=== PATIENT | female | born 1965 | race Caucasian/White ===

== ENCOUNTER 2019-11-25 17:21 | Emergency (ER) | payer BC ==
[2019-11-25 17:31] VITALS: TEMP 98.7
[2019-11-25] MEDS ORDERED: SODIUM CHLORIDE 0.9% 1,000 ML IV STA ×2 (17:39)
[2019-11-25] MEDS ORDERED: methylPREDNISolone SOD SUCCI 125 MG/2 ML VIAL IV STA (17:39)
[2019-11-25] MEDS ORDERED: IPRATROPIUM-ALBUTEROL 3 ML NEB INHALATION STA (17:39)
[2019-11-25] MEDS ORDERED: AZITHROMYCIN 500 MG in SODIUM CHLORIDE 0.9% 250 ML IVPB STA (17:39)
--- NOTE | 2019-11-25 17:39 | ED ---
SOB HPI - General Chief Complaint: Chest Pain Stated Complaint: Chest pain Time Seen by Provider: 11/25/19 17:29 Source: patient, RN notes reviewed, old records reviewed Mode of arrival: ambulatory Limitations: no limitations - History of Present Illness Initial Comments: This is a 34-year-old female presents today for evaluation of shortness of breath severe shortness breath cough and congestion some chest pain with cough history of asthma history of bronchitis history of smoking. No significant chest pain no travel history no sick contacts no history of DVT no lower extremity edema or swelling no recent fevers. Again she has have increased cou gh and congestion and pain with cough MD Complaint: shortness of breath, cough, pain with inspiration -: days(s) Radiation: back Severity: moderate Severity scale (1-10): 3 Quality: aching Consistency: constant Improves With: nothing Worsens With: nothing Known History Of: COPD, asthma Context: recent URI Associated Symptoms: chest pain, pain with inspiration, cough Treatments Prior to Arrival: none - Related Data Home Medications Medication Instructions Recorded Confirmed Albuterol Nebulized [Ventolin 2.5 mg INHALATION RT-QID PRN 11/25/19 11/25/19 Nebulized] Atorvastatin [Lipitor] 40 mg PO DAILY 11/25/19 11/25/19 Budesonide [Pulmicort] 0.5 mg INHALATION RT-BID 11/25/19 11/25/19 HYDROcodone/APAP 7.5-325MG [[place] 1 tab PO TID PRN MDD N 11/25/19 11/25/19 7.5-325] Vitamin B Complex 1 cap PO DAILY 11/25/19 11/25/19 Previous Rx's Medication Instructions Recorded Albuterol Nebulized [Ventolin 2.5 mg INHALATION Q4H PRN #25 nebu 11/25/19 Nebulized] Albuterol Sulfate [Proair Hfa] 1 - 2 puff INHALATION Q4H PRN #1 11/25/19 inhaler Azithromycin [Zithromax Z-pack] 0 mg PO DIRECTED #1 pack 11/25/19 predniSONE 50 mg PO DAILY #5 tab 11/25/19 Allergies Allergy/AdvReac Type Severity Reaction Status Date / Time influenza virus vaccine ts Allergy Unknown Verified 11/25/19 18:57 [id number] (36 mos,up) [From Fluarix] Milk Containing Products Allergy Nausea & Verified 11/25/19 18:57 [Dairy] Vomiting & Diarrhea mold Allergy Dyspnea Verified 11/25/19 18:57 tomato Allergy Nausea & Verified 11/25/19 18:57 Vomiting & Diarrhea Review of Systems ROS Statement: Those systems with pertinent positive or pertinent negative responses have been documented in the HPI. ROS Other: All systems not noted in ROS Statement are negative. Past Medical History Past Medical History: Asthma, COPD History of Any Multi-Drug Resistant Organisms: None Reported, Unobtainable Past Surgical History: Hysterectomy Past Psychological History: No Psychological Hx Reported Smoking Status: Former smoker Past Alcohol Use History: Occasional Past Drug Use History: Marijuana General Exam Limitations: no limitations General appearance: alert, in no apparent distress Head exam: Present: atraumatic, normocephalic, normal inspection Eye exam: Present: normal appearance, PERRL, EOMI. Absent: scleral icterus, conjunctival injection, periorbital swelling ENT exam: Present: normal exam, mucous membranes moist Neck exam: Present: normal inspection. Absent: tenderness, meningismus, lymphadenopathy Respiratory exam: Present: normal lung sounds bilaterally. Absent: respiratory distress, wheezes, rales, rhonchi, stridor Cardiovascular Exam: Present: regular rate, normal rhythm, normal heart sounds. Absent: systolic murmur, diastolic murmur, rubs, gallop, clicks GI/Abdominal exam: Present: soft, normal bowel sounds. Absent: distended, tenderness, guarding, rebound, rigid Extremities exam: Present: normal inspection, full ROM, normal capillary refill. Absent: tenderness, pedal edema, joint swelling, calf tenderness Back exam: Present: normal inspection Neurological exam: Present: alert, oriented X3, CN II-XII intact Psychiatric exam: Present: normal affect, normal mood Skin exam: Present: warm, dry, intact, normal color. Absent: rash Course Vital Signs 11/25/19 11/25/19 11/25/19 17:28 18:02 18:15 Temperature 98.7 F Pulse Rate 71 61 67 Respiratory 16 16 16 Rate Blood Pressure 129/88 O2 Sat by Pulse 98 Oximetry - Reevaluation(s) Reevaluation #1: 11/25/19 19:09 Medical record is reviewed Reevaluation #2: 11/25/19 19:09 Symptoms are significantly improved improved cough or congestion Reevaluation #3: 11/25/19 19:09 Skin shortness of breath Reevaluation #4: 11/25/19 19:09 Spoke patient regarding findings, questions answered, would like discharged home Medical Decision Making - Medical Decision Making 54 female DF for evaluation of chest pain shortness breath pain with cough significant COPD exacerbation, patient can be discharged home - Lab Data Result diagrams: 11/25/19 17:27 11/25/19 17:27 Lab Results 11/25/19 11/25/19 11/25/19 Range/Units 17:27 17:27 17:27 WBC 6.3 (3.8-10.6) k/uL RBC 4.12 (3.80-5.40) m/uL Hgb 12.7 (11.4-16.0) gm/dL Hct 37.6 (34.0-46.0) % MCV 91.2 (80.0-100.0) fL MCH 30.8 (25.0-35.0) pg MCHC 33.8 (31.0-37.0) g/dL RDW 12.1 (11.5-15.5) % Plt Count 340 (150-450) k/uL Neutrophils % 48 % Lymphocytes % 40 % Monocytes % 5 % Eosinophils % 4 % Basophils % 1 % Neutrophils # 3.0 (1.3-7.7) k/uL Lymphocytes # 2.5 (1.0-4.8) k/uL Monocytes # 0.3 (0-1.0) k/uL Eosinophils # 0.3 (0-0.7) k/uL Basophils # 0.0 (0-0.2) k/uL PT (9.0-12.0) sec INR (<1.2) APTT (22.0-30.0) sec D-Dimer (<0.60) mg/L FEU Sodium 138 (137-145) mmol/L Potassium 3.8 (3.5-5.1) mmol/L Chloride 105 (98-107) mmol/L Carbon Dioxide 24 (22-30) mmol/L Anion Gap 9 mmol/L BUN 14 (7-17) mg/dL Creatinine 0.87 (0.52-1.04) mg/dL Est GFR (CKD-EPI)AfAm 88 (>60 ml/min/1.73 sqM) Est GFR (CKD-EPI)NonAf 77 (>60 ml/min/1.73 sqM) Glucose 123 H (74-99) mg/dL Plasma Lactic Acid Tray 1.3 (0.7-2.0) mmol/L Calcium 9.4 (8.4-10.2) mg/dL Magnesium 2.1 (1.6-2.3) mg/dL Total Bilirubin 0.2 (0.2-1.3) mg/dL AST 25 (14-36) U/L ALT 23 (4-34) U/L Alkaline Phosphatase 91 (38-126) U/L Troponin I (0.000-0.034) ng/mL NT-Pro-B Natriuret Pep pg/mL Total Protein 7.1 (6.3-8.2) g/dL Albumin 4.0 (3.5-5.0) g/dL 11/25/19 11/25/19 11/25/19 Range/Units 17:27 17:27 17:27 WBC (3.8-10.6) k/uL RBC (3.80-5.40) m/uL Hgb (11.4-16.0) gm/dL Hct (34.0-46.0) % MCV (80.0-100.0) fL MCH (25.0-35.0) pg MCHC (31.0-37.0) g/dL RDW (11.5-15.5) % Plt Count (150-450) k/uL Neutrophils % % Lymphocytes % % Monocytes % % Eosinophils % % Basophils % % Neutrophils # (1.3-7.7) k/uL Lymphocytes # (1.0-4.8) k/uL Monocytes # (0-1.0) k/uL Eosinophils # (0-0.7) k/uL Basophils # (0-0.2) k/uL PT 9.9 (9.0-12.0) sec INR 0.9 (<1.2) APTT 25.4 (22.0-30.0) sec D-Dimer 0.18 (<0.60) mg/L FEU Sodium (137-145) mmol/L Potassium (3.5-5.1) mmol/L Chloride (98-107) mmol/L Carbon Dioxide (22-30) mmol/L Anion Gap mmol/L BUN (7-17) mg/dL Creatinine (0.52-1.04) mg/dL Est GFR (CKD-EPI)AfAm (>60 ml/min/1.73 sqM) Est GFR (CKD-EPI)NonAf (>60 ml/min/1.73 sqM) Glucose (74-99) mg/dL Plasma Lactic Acid Tray (0.7-2.0) mmol/L Calcium (8.4-10.2) mg/dL Magnesium (1.6-2.3) mg/dL Total Bilirubin (0.2-1.3) mg/dL AST (14-36) U/L ALT (4-34) U/L Alkaline Phosphatase (38-126) U/L Troponin I <0.012 (0.000-0.034) ng/mL NT-Pro-B Natriuret Pep 148 pg/mL Total Protein (6.3-8.2) g/dL Albumin (3.5-5.0) g/dL - EKG Data -: EKG Interpreted by Me (EKG shows sinus rhythm of 71, [place] 160, QRS 92, QTC 436) - Radiology Data Radiology results: report reviewed (CXR negative for acute disease), image reviewed Disposition Clinical Impression: Acute exacerbation of chronic obstructive pulmonary disease (COPD) Disposition: HOME SELF-CARE Condition: Good Instructions (If sedation given, give patient instructions): COPD (Chronic Obstructive Pulmonary Disease) (ED) Prescriptions: predniSONE 50 mg PO DAILY #5 tab Albuterol Sulfate [Proair Hfa] 1 - 2 puff INHALATION Q4H PRN #1 inhaler PRN Reason: Shortness Of Breath Albuterol Nebulized [Ventolin Nebulized] 2.5 mg INHALATION Q4H PRN #25 nebu PRN Reason: Shortness Of Breath Azithromycin [Zithromax Z-pack] 0 mg PO DIRECTED #1 pack Is patient prescribed a controlled substance at d/c from ED?: No Referrals: Donny Resendiz MD [Primary Care Provider] - 1-2 days
[2019-11-25] MEDS ORDERED: KETOROLAC 30 MG/ML 1 ML VIAL IVP STA (17:40)
[2019-11-25 17:56] LABS: Basophils % (A) 1 %; Eosinophils # (A) 0.3 k/uL (0-0.7); Eosinophils % (A) 4 %; HCT 37.6 % (34.0-46.0); HGB 12.7 gm/dL (11.4-16.0); Lymphocytes # (A) 2.5 k/uL (1.0-4.8); Lymphocytes % (A) 40 %; MCH 30.8 pg (25.0-35.0); MCHC 33.8 g/dL (31.0-37.0); MCV 91.2 fL (80.0-100.0); Mean Platelet Volume 7.4; Monocytes # (A) 0.3 k/uL (0-1.0); Monocytes % (A) 5 %; Neutrophils % (A) 48 %; Platelet Count 340 k/uL (150-450); RBC 4.12 m/uL (3.80-5.40); RDW 12.1 % (11.5-15.5); WBC 6.3 k/uL (3.8-10.6)
[2019-11-25 18:00] LABS: Calcium 9.4 mg/dL (8.4-10.2); Magnesium 2.1 mg/dL (1.6-2.3); Potassium 3.8 mmol/L (3.5-5.1); Total Bilirubin 0.2 mg/dL (0.2-1.3); Total Protein 7.1 g/dL (6.3-8.2)
[2019-11-25 18:07] LABS: D-Dimer 0.18 mg/L FEU (<0.60); INR 0.9 (<1.2); Partial Thromboplastin Time 25.4 sec (22.0-30.0); Prothrombin Time 9.9 sec (9.0-12.0)
--- NOTE | 2019-11-25 18:27 | XR ---
EXAMINATION TYPE: XR chest 2V DATE OF EXAM: 11/25/2019 COMPARISON: 12/18/1909 HISTORY: Asthma. Short of breath TECHNIQUE: 2 views FINDINGS: Heart and mediastinum are normal. Lungs are clear. Diaphragm is normal. Bony thorax is inta ct. IMPRESSION: Normal chest. No change.
[2019-11-25 19:12] VITALS: BP 123/76; PULSE 76; RESP 18
== END 2019-11-25 19:49 | disposition home or self-care (01) ==
LOC: EC 17:21
DX: J44.1 Chronic obstructive pulmonary disease with (acute) exacerbation (principal); Z79.51 Long term (current) use of inhaled steroids; Z87.891 Personal history of nicotine dependence; Z88.7 Allergy status to serum and vaccine; Z91.011 Allergy to milk products; Z91.018 Allergy to other foods; Z91.048 Other nonmedicinal substance allergy status
CPT/HCPCS: 36415; 94640; 93005; 85379; 83880; 80053; 83605; 83735; 84484; 85025; 85610; 85730; 87040; 87502; 71046; 99285; 96365; 96375 ×2; J2930; J0456; J1885

== ENCOUNTER 2020-12-22 13:28 | Emergency (ER) | payer BC ==
[2020-12-22] MEDS ORDERED: SODIUM CHLORIDE 0.9% 1,000 ML IV STA (14:34)
[2020-12-22] MEDS ORDERED: KETOROLAC 15 MG/ML 1 ML VIAL IVP STA (14:34)
[2020-12-22 15:09] LABS: HCT 41.1 % (34.0-46.0); HGB 13.8 gm/dL (11.4-16.0); RBC 4.46 m/uL (3.80-5.40); WBC 7.4 k/uL (3.8-10.6)
[2020-12-22 15:10] LABS: Basophils # (A) 0.1 k/uL (0-0.2); Basophils % (A) 1 %; Eosinophils # (A) 0.3 k/uL (0-0.7); Eosinophils % (A) 4 %; Lymphocytes # (A) 2.3 k/uL (1.0-4.8); Lymphocytes % (A) 31 %; MCH 30.9 pg (25.0-35.0); MCHC 33.5 g/dL (31.0-37.0); MCV 92.3 fL (80.0-100.0); Mean Platelet Volume 6.6; Monocytes # (A) 0.5 k/uL (0-1.0); Monocytes % (A) 6 %; Neutrophils # (A) 4.2 k/uL (1.3-7.7); Neutrophils % (A) 57 %; Platelet Count 351 k/uL (150-450); RDW 12.8 % (11.5-15.5)
--- NOTE | 2020-12-22 15:15 | ED ---
Abdominal Pain HPI - General Chief Complaint: Abdominal Pain Stated Complaint: abdominal pain Time Seen by Provider: 12/22/20 14:22 Source: patient Mode of arrival: ambulatory Limitations: no limitations - History of Present Illness Initial Comments: Patient is a 55-year-old female presenting to the emergency Department with complaints of right upper quadrant abdominal pain for the past 2 days. Patient states it started yesterday and has been increasing in intensity. She was seen in urgent care today and he recommended coming into the ER for further evaluation. She states currently it is about an 8/10 but does spike up to a 10. She does admit to some radiation towards the right side as well as the right back. Admits to history of kidney stones but states this feels different. She denies any nausea or vomiting, no diarrhea. She's had regular bowel movements. She has history of hysterectomy, no other abdominal surgeries. She denies any fevers or chills, no chest pain or shortness of breath. She has no further complaints. Upon arrival to the ER, vital signs are stable. - Related Data Home Medications Medication Instructions Recorded Confirmed Albuterol Nebulized [Ventolin 2.5 mg INHALATION RT-QID PRN 11/25/19 11/25/19 Nebulized] Atorvastatin [Lipitor] 40 mg PO DAILY 11/25/19 11/25/19 Budesonide [Pulmicort] 0.5 mg INHALATION RT-BID 11/25/19 11/25/19 HYDROcodone/APAP 7.5-325MG [[place] 1 tab PO TID PRN MDD N 11/25/19 11/25/19 7.5-325] Vitamin B Complex 1 cap PO DAILY 11/25/19 11/25/19 Previous Rx's Medication Instructions Recorded Albuterol Nebulized [Ventolin 2.5 mg INHALATION Q4H PRN #25 nebu 11/25/19 Nebulized] Albuterol Sulfate [Proair Hfa] 1 - 2 puff INHALATION Q4H PRN #1 11/25/19 inhaler Azithromycin [Zithromax Z-pack (6 0 mg PO DIRECTED #1 pack 11/25/19 tabs)] predniSONE 50 mg PO DAILY #5 tab 11/25/19 Allergies Allergy/AdvReac Type Severity Reaction Status Date / Time influenza virus vaccine ts Allergy Unknown Verified 12/22/20 14:00 [id number] (36 mos,up) [From Fluarix] Milk Containing Products Allergy Nausea & Verified 12/22/20 14:00 [Dairy] Vomiting & Diarrhea mold Allergy Dyspnea Verified 12/22/20 14:00 tomato Allergy Nausea & Verified 12/22/20 14:00 Vomiting & Diarrhea Review of Systems ROS Statement: Those systems with pertinent positive or pertinent negative responses have been documented in the HPI. ROS Other: All systems not noted in ROS Statement are negative. Past Medical History Past Medical History: Asthma, COPD History of Any Multi-Drug Resistant Organisms: None Reported, Unobtainable Past Surgical History: Hysterectomy Past Psychological History: No Psychological Hx Reported Smoking Status: Former smoker Past Alcohol Use History: Occasional Past Drug Use History: Marijuana General Exam - General Exam Comments Initial Comments: GENERAL: Patient is well-developed and well-nourished. Patient is nontoxic and in no acute distress. HEAD: Atraumatic, normocephalic. EYES: Pupils equal round and reactive to light, extraocular movements intact, sclera anicteric, conjunctiva are normal. Eyelids were unremarkable. ENT: TMs normal, nares patent, oropharynx clear without exudates. Moist mucous membranes. NECK: Normal range of motion, supple without lymphadenopathy or JVD. LUNGS: Unlabored respirations. Breath sounds clear to auscultation bilaterally and equal. No wheezes rales or rhonchi. HEART: Regular rate and rhythm without murmurs, rubs or gallops. ABDOMEN: Soft, right upper quadrant pain with palpation, positive Block sign, normoactive bowel sounds. No masses appreciated. : Deferred MUSCULOSKELETAL: Normal extremities with adequate strength and normal range of motion, no pitting or edema. No clubbing or cyanosis. NEUROLOGICAL: Patient is alert and oriented x 3. Motor and sensory are also intact. Cranial nerves II through XII grossly intact. Symmetrical smile. Normal speech, normal gait. PSYCH: Normal mood, normal affect. SKIN: Warm, Dry, normal turgor, no rashes or lesions noted. Limitations: no limitations Course Vital Signs 12/22/20 12/22/20 13:58 16:59 Temperature 99.2 F 98.7 F Pulse Rate 86 76 Respiratory 20 18 Rate Blood Pressure 136/84 163/85 O2 Sat by Pulse 98 98 Oximetry Medical Decision Making - Medical Decision Making Patient is a 55-year-old female here with right upper quadrant pain 2 days. Vital signs are stable, history of hysterectomy, no other abdominal surgeries. Labs are unremarkable including normal white count, normal liver enzymes, normal lipase, urine is also normal. Gallbladder ultrasound shows no evidence of stones or acute cholecystitis, no abnormalities seen. Is given fluids and pain control and does report improvement in her symptoms. Discussed with patient that her symptoms are consistent with biliary colic. I recommended following up with a surgeon or GI specialist is. I will give her referral. Patient is stable for discharge. Patient is in agreement with this plan of care. Return parameters were discussed with the patient and they verbalized understanding. Case discussed with Dr. Figueredo. - Lab Data Result diagrams: 12/22/20 14:58 12/22/20 14:58 Lab Results 12/22/20 12/22/20 12/22/20 Range/Units 14:58 14:58 14:58 WBC 7.4 (3.8-10.6) k/uL RBC 4.46 (3.80-5.40) m/uL Hgb 13.8 (11.4-16.0) gm/dL Hct 41.1 (34.0-46.0) % MCV 92.3 (80.0-100.0) fL MCH 30.9 (25.0-35.0) pg MCHC 33.5 (31.0-37.0) g/dL RDW 12.8 (11.5-15.5) % Plt Count 351 (150-450) k/uL MPV 6.6 Neutrophils % 57 % Lymphocytes % 31 % Monocytes % 6 % Eosinophils % 4 % Basophils % 1 % Neutrophils # 4.2 (1.3-7.7) k/uL Lymphocytes # 2.3 (1.0-4.8) k/uL Monocytes # 0.5 (0-1.0) k/uL Eosinophils # 0.3 (0-0.7) k/uL Basophils # 0.1 (0-0.2) k/uL PT (9.0-12.0) sec INR (<1.2) APTT (22.0-30.0) sec Sodium 138 (137-145) mmol/L Potassium 4.2 (3.5-5.1) mmol/L Chloride 103 (98-107) mmol/L Carbon Dioxide 27 (22-30) mmol/L Anion Gap 8 mmol/L BUN 14 (7-17) mg/dL Creatinine 0.81 (0.52-1.04) mg/dL Est GFR (CKD-EPI)AfAm >90 (>60 ml/min/1.73 sqM) Est GFR (CKD-EPI)NonAf 83 (>60 ml/min/1.73 sqM) Glucose 114 H (74-99) mg/dL Plasma Lactic Acid Tray (0.7-2.0) mmol/L Calcium 9.6 (8.4-10.2) mg/dL Total Bilirubin 0.5 (0.2-1.3) mg/dL AST 23 (14-36) U/L ALT 21 (4-34) U/L Alkaline Phosphatase 86 (38-126) U/L Total Protein 6.8 (6.3-8.2) g/dL Albumin 3.9 (3.5-5.0) g/dL Amylase 47 (30-110) U/L Lipase 104 (23-300) U/L Urine Color Light Yellow Urine Appearance Turbid H (Clear) Urine pH 8.0 (5.0-8.0) Ur Specific [place] 1.014 (1.001-1.035) Urine Protein Negative (Negative) Urine Glucose (UA) Negative (Negative) Urine Ketones Negative (Negative) Urine Blood Negative (Negative) Urine Nitrite Negative (Negative) Urine Bilirubin Negative (Negative) Urine Urobilinogen <2.0 (<2.0) mg/dL Ur Leukocyte Esterase Negative (Negative) Urine RBC 3 (0-5) /hpf Urine WBC 5 (0-5) /hpf Ur Squamous Epith Cells 1 (0-4) /hpf Urine Bacteria Rare H (None) /hpf Urine Mucus Rare H (None) /hpf Urine Yeast (Budding) Many H (None) /hpf 12/22/20 12/22/20 Range/Units 14:58 14:58 WBC (3.8-10.6) k/uL RBC (3.80-5.40) m/uL Hgb (11.4-16.0) gm/dL Hct (34.0-46.0) % MCV (80.0-100.0) fL MCH (25.0-35.0) pg MCHC (31.0-37.0) g/dL RDW (11.5-15.5) % Plt Count (150-450) k/uL MPV Neutrophils % % Lymphocytes % % Monocytes % % Eosinophils % % Basophils % % Neutrophils # (1.3-7.7) k/uL Lymphocytes # (1.0-4.8) k/uL Monocytes # (0-1.0) k/uL Eosinophils # (0-0.7) k/uL Basophils # (0-0.2) k/uL PT 9.9 (9.0-12.0) sec INR 0.9 (<1.2) APTT 24.7 (22.0-30.0) sec Sodium (137-145) mmol/L Potassium (3.5-5.1) mmol/L Chloride (98-107) mmol/L Carbon Dioxide (22-30) mmol/L Anion Gap mmol/L BUN (7-17) mg/dL Creatinine (0.52-1.04) mg/dL Est GFR (CKD-EPI)AfAm (>60 ml/min/1.73 sqM) Est GFR (CKD-EPI)NonAf (>60 ml/min/1.73 sqM) Glucose (74-99) mg/dL Plasma Lactic Acid Tray 1.0 (0.7-2.0) mmol/L Calcium (8.4-10.2) mg/dL Total Bilirubin (0.2-1.3) mg/dL AST (14-36) U/L ALT (4-34) U/L Alkaline Phosphatase (38-126) U/L Total Protein (6.3-8.2) g/dL Albumin (3.5-5.0) g/dL Amylase (30-110) U/L Lipase (23-300) U/L Urine Color Urine Appearance (Clear) Urine pH (5.0-8.0) Ur Specific [place] (1.001-1.035) Urine Protein (Negative) Urine Glucose (UA) (Negative) Urine Ketones (Negative) Urine Blood (Negative) Urine Nitrite (Negative) Urine Bilirubin (Negative) Urine Urobilinogen (<2.0) mg/dL Ur Leukocyte Esterase (Negative) Urine RBC (0-5) /hpf Urine WBC (0-5) /hpf Ur Squamous Epith Cells (0-4) /hpf Urine Bacteria (None) /hpf Urine Mucus (None) /hpf Urine Yeast (Budding) (None) /hpf Disposition Clinical Impression: Right upper quadrant pain, Biliary colic Disposition: HOME SELF-CARE Condition: Stable Instructions (If sedation given, give patient instructions): Abdominal Pain (ED) Additional Instructions: Please return to the Emergency Department if symptoms worsen or any other concerns. Recommend Tylenol or ibuprofen for any continued discomfort. I also recommend following up with a GI specialist concerning possible gallbladder dysfunction. Is patient prescribed a controlled substance at d/c from ED?: No Referrals: Donny Resendiz MD [Primary Care Provider] - 1-2 days Chaz Serna MD [STAFF PHYSICIAN] - 1-2 days
[2020-12-22 15:17] LABS: INR 0.9 (<1.2); Partial Thromboplastin Time 24.7 sec (22.0-30.0); Prothrombin Time 9.9 sec (9.0-12.0)
[2020-12-22 15:20] LABS: ALT 21 U/L (4-34); AST 23 U/L (14-36); African American GFR (CKD) >90 (>60 ml/min/1.73 sqM); Albumin 3.9 g/dL (3.5-5.0); Alkaline Phosphatase 86 U/L (38-126); Amylase 47 U/L (30-110); Anion Gap 8 mmol/L; Blood Urea Nitrogen 14 mg/dL (7-17); Calcium 9.6 mg/dL (8.4-10.2); Carbon Dioxide 27 mmol/L (22-30); Chloride 103 mmol/L (98-107); Glucose 114 mg/dL (74-99); Lipase 104 U/L (23-300); Non-African American GFR(CKD) 83 (>60 ml/min/1.73 sqM); Potassium 4.2 mmol/L (3.5-5.1); Sodium 138 mmol/L (137-145); Total Bilirubin 0.5 mg/dL (0.2-1.3); Total Protein 6.8 g/dL (6.3-8.2)
[2020-12-22 16:08] LABS: Appearance,Urine Turbid (Clear); Bacteria,Urine Rare /hpf; Bilirubin,Urine Negative (Negative); Blood,Urine Negative (Negative); Budding Yeast,Urine Many /hpf; Color,Urine Light Yellow; Glucose,Urine (UA) Negative (Negative); Ketones,Urine Negative (Negative); Leukocyte Esterase,Urine Negative (Negative); Mucus,Urine Rare /hpf; Nitrite,Urine Negative (Negative); Protein,Urine Negative (Negative); RBC,Urine 3 /hpf (0-5); Specific Gravity,Urine 1.014 (1.001-1.035); Squamous Epithelial Cell,Urine 1 /hpf (0-4); Urobilinogen,Urine <2.0 mg/dL (<2.0); WBC,Urine 5 /hpf (0-5)
--- NOTE | 2020-12-22 16:19 | US ---
EXAMINATION TYPE: US gallbladder DATE OF EXAM: 12/22/2020 COMPARISON: NONE CLINICAL HISTORY: RUQ pain x 2 days. epigastric pain and RUQ pain EXAM MEASUREMENTS: Liver Length: 14.9 cm Gallbladder Wall: 0.2 cm CBD: 0.6 cm Right Kidney: 9.6 x 4.2 x 4.2 cm *Technical limitations due to overlying bowel content Pancreas: Obscured by bowel gas Liver: appears wnl Gallbladder: no evidence of stones Evidence for sonographic Block's sign: no CBD: upper limits of normal Right Kidney: no evidence of hydronephrosis IMPRESSION: Unremarkable study
[2020-12-22 17:00] VITALS: BP 163/85; PULSE 76; RESP 18; TEMP 98.7
== END 2020-12-22 16:59 | disposition home or self-care (01) ==
LOC: EC 13:28
DX: K80.50 Calculus of bile duct without cholangitis or cholecystitis without obstruction (principal); J44.9 Chronic obstructive pulmonary disease, unspecified; F12.90 Cannabis use, unspecified, uncomplicated; Z87.891 Personal history of nicotine dependence; Z79.51 Long term (current) use of inhaled steroids
CPT/HCPCS: 36415; 80053; 82150; 83605; 83690; 85025; 85610; 85730; 81001; 76705; 99284; 96374; 96361; J1885

== ENCOUNTER 2021-01-11 07:07 | Day surgery (SDC) | payer BC ==
[2021-01-06 13:38] VITALS: BMI 33.0
[~2021-01-11 07:07] MED LIST: LACTATED RINGERS 1,000 ML IV SCH; LIDOCAINE 1% (10MG/ML) FOR IV START INTRADERMA PRN
[2021-01-11 07:47] VITALS: RESP 16; TEMP 97.6
[2021-01-11 07:50] LABS: Glucose,Whole Blood 118 mg/dL (75-99)
[2021-01-11] MEDS ORDERED: LIDOCAINE 1% INJ 10MG/ML (20 ML MDV) ONE (08:09)
[2021-01-11] MEDS ORDERED: PROPOFOL 10 MG/ML 20 ML VIAL IV ONE (08:09)
--- NOTE | 2021-01-11 08:42 | P.PCN ---
Date of Procedure: 01/11/21 Description of Procedure: Brief history: Patient is a pleasant 55-year-old female presenting for outpatient EGD and colonoscopy for evaluation of epigastric abdominal pain and diarrhea. Patient had been seen in the office reporting severe epigastric and right upper quadrant abdominal pain. Milagro hours in duration. Ultrasound unremarkable with no hepatobiliary disease. She reported gas, bloating and distention as well as symptoms of diarrhea. No prior EGD or colonoscopy. Procedure performed: Esophagogastroduodenoscopy with biopsy Colonoscopy with biopsy and polypectomy Estimated blood loss: Minimal. Preoperative diagnosis: Epigastric abdominal pain, GERD, diarrhea, no prior colonoscopy. Anesthesia: MAC Procedure: After informed consent was obtained from the patient was brought into the endoscopy unit and IV sedation was administered by anesthesia under continuous monitoring. Initially upper endoscopy was done. The Olympus GF 190 video endoscope was inserted into the mouth and esophagus intubated without any difficulty and was gradually advanced into the stomach and duodenum and carefully examined. The bulb and second part of the duodenum appeared normal, except for some mild irritation suggestive of mild duodenitis with biopsies taken. The scope was then withdrawn into the stomach adequately insufflated with air and upon careful examination the antrum and body, cardia and fundus appeared normal, except for moderate erythema and superficial erosions suggestiv e moderate gastritis with biopsies of antrum and body taken. The scope was then withdrawn into the esophagus. The GE junction was located at 36 cm to the incisors, with some mild erythema suggestive of LA grade a distal esophagitis with biopsies taken. It appeared regular with no erythema erosions or ulcerations. Rest of the esophagus appeared normal. Patient tolerated the procedure well. At this time the patient continued to remain sedation. Initial digital rectal examination was normal. Olympus CF 190 video colonoscope was then inserted into the rectum and gradually advanced to the cecum without any difficulty. Careful examination was performed as the scope was gradually being withdrawn. The prep was excellent. The cecum, ascending colon, transverse colon, descending colon, sigmoid colon and rectum appeared normal. A flat 4 mm ascending colon polyp was removed with cold snare polypectomy. Random biopsies were taken of a normal- appearing right colon, left colon and terminal ileum. A few scattered diverticula noted in the left colon. Retroflexion was performed in the rectum and no lesions were noted, internal hemorrhoids were seen. Patient tolerated the procedure well. Impression: 1. Moderate gastritis. LA grade a distal esophagitis. Duodenitis which was mild. Biopsies of the duodenum, antrum body and GE junction. 2. Flat ascending polyp removed with cold snare. Mild left colonic diverticulosis. Otherwise normal-appearing colon from rectum to cecum and normal-appearing terminal ileum with random biopsies taken of the terminal ileum, right colon and left colon the setting of diarrhea. Recommendations: Findings of this examination were discussed with the patient as well as Her family. Okay to resume diet. Okay to resume medications. Await pathology from biopsies and polypectomy. Recommend repeat colonoscopy in 5 years for screening pending pathology from polypectomy. Continue current medical management. Follow-up in the GI clinic as scheduled.
[2021-01-11 08:59] VITALS: BP 127/81; PULSE 69
== END 2021-01-11 09:25 | disposition home or self-care (01) ==
LOC: ORWHC2ENDO 07:07
PROVIDERS: ATTEND Internal Medicine
DX: K29.50 Unspecified chronic gastritis without bleeding (principal); K21.00 Gastro-esophageal reflux disease with esophagitis, without bleeding; K29.80 Duodenitis without bleeding; D12.2 Benign neoplasm of ascending colon; K57.30 Diverticulosis of large intestine without perforation or abscess without bleeding; E78.5 Hyperlipidemia, unspecified; J44.9 Chronic obstructive pulmonary disease, unspecified; Z79.84 Long term (current) use of oral hypoglycemic drugs; Z79.899 Other long term (current) drug therapy; Z88.7 Allergy status to serum and vaccine
CPT/HCPCS: 88305; 43239; 45380; 45385; J2001; J2704

== ENCOUNTER → 2021-06-17 | Outpatient (CLI) | payer BC ==
--- NOTE | 2021-06-17 09:23 | XR ---
Lumbar spine with flexion and extension HISTORY: M [age], back pain 7 views of lumbosacral spine are submitted, correlation to CT lumbar spine same date Lumbar vertebral bodies show preserved height. Bone mineralization is reduced. Loss of disc height is present at L5-S1, there is associated spondylosis. Sclerosis is present in the posterior elements of the lower lumbar spine consistent with facet arthropathy. On flexion view there is a minimal anterol isthesis grade 1 at L4-5 of approximately 6 mm, normalized alignment on extension view and neutral vi ew. There is no evident spondylolysis. IMPRESSION: Degenerative disc disease and spondylolisthesis on flexion view at L4-5. Facet arthropath y.
--- NOTE | 2021-06-17 13:26 | CT ---
EXAMINATION TYPE: CT lumbar spine wo con DATE OF EXAM: 06/17/2021 COMPARISON: 02/17/2016 HISTORY: Lumbago CT DLP: 830.7 mGycm CONTRAST: None TECHNIQUE: CT of the lumbar spine is performed on a spiral scan at 3 mm thick sections. Reconstructed images are performed in the coronal and sagittal planes. FINDINGS: T12-L1: No focal disc herniation or significant disc bulge is evident. No spinal canal stenosis or neural foraminal stenosis is present. L1-L2: No focal disc herniation or significant disc bulge is evident. No spinal canal stenosis or n eural foraminal stenosis is present L2-L3: No focal disc herniation or significant disc bulge is evident. No spinal canal stenosis or n eural foraminal stenosis is present L3-L4: No focal disc herniation or significant disc bulge is evident. No spinal canal stenosis or n eural foraminal stenosis is present L4-L5: Disc bulge is present with mild anterior thecal sac compression. Facet hypertrophy and ligamen cipriano flavum laxity is some mild lateral canal narrowing. No spinal canal stenosis is present. Facet hy pertrophy is present L5-S1: There is loss of disc at this level. Anterior and posterior endplate spurring from L5 is evide nt. Anterior thecal sac contact is present without AP spinal canal stenosis. Some contact with the ex iting right S1 nerve root is present. Correlate with radicular symptoms. Vertebral alignment appears normal. IMPRESSION: 1. Endplate spurring and calcified ligament at L5-S1 in the central right paracentral region is conta ct with exiting right S1 nerve root. Correlate radicular symptoms. 2. Degenerative disc changes L5-S1. 3. Mild disc bulging with anterior thecal sac contact L4-5. 4. Facet hypertrophy and ligamentum flavum laxity contributing to some mild lateral canal stenosis at the L4-5 level.
== END | disposition home or self-care (01) ==
LOC: RADCTMAIN 05:59
PROVIDERS: ATTEND Psychiatry & Neurology Neurology
DX: M51.36 Other intervertebral disc degeneration, lumbar region (principal); M43.16 Spondylolisthesis, lumbar region; M47.896 Other spondylosis, lumbar region
CPT/HCPCS: 72114; 72131

== ENCOUNTER 2021-09-03 10:58 | Emergency (ER) | payer BC ==
[2021-09-03 13:07] VITALS: BP 126/80; TEMP 99.1
[2021-09-03] MEDS ORDERED: SODIUM CHLORIDE 0.9% 1,000 ML IV STA (15:36)
[2021-09-03] MEDS ORDERED: ONDANSETRON 4 MG/2 ML VIAL IVP STA (15:36)
[2021-09-03] MEDS ORDERED: FAMOTIDINE 20 MG/2 ML VIAL IV STA (15:37)
--- NOTE | 2021-09-03 15:40 | ED ---
General Adult HPI - General Chief complaint: Nausea/Vomiting/Diarrhea Stated complaint: vomiting, body aches Time Seen by Provider: 09/03/21 15:30 Source: patient, RN notes reviewed, old records reviewed Mode of arrival: ambulatory Limitations: no limitations - History of Present Illness Initial comments: 56-year-old female, alert and oriented 4, presents to the emergency room with complaints of 3 days of nausea vomiting and diarrhea. Patient states that she got the coronavirus vaccine booster on at 12:15. By 5:00 she had nausea vomiting and diarrhea. She has had 3 episodes of vomiting today yellow in color and watery. She states that she's had at least 6 watery diarrhea episodes brown in color. She has a history of asthma, COPD and [id number] diabetes. She is a nonsmoker -: days(s) (3) Location: abdomen Radiation: non-radiation Severity scale (1-10): 8 Quality: aching Consistency: constant Improves with: none Worsens with: other (vomiting) Associated Symptoms: fever/chills, headaches, loss of appetite, nausea/vomiting, other (diarrhea) Treatments Prior to Arrival: none - Related Data Home Medications Medication Instructions Recorded Confirmed HYDROcodone/APAP 7.5-325MG [Garrison 1 tab PO TID PRN 11/25/19 01/06/21 7.5-325] Atorvastatin Calcium [Lipitor] 80 mg PO DAILY 01/06/21 01/06/21 [facility] Allergy Pill 100 mg PO DAILY 01/06/21 01/06/21 Multivitamins, Thera [Multivitamin 1 tab PO DAILY 01/06/21 01/06/21 (formulary)] Mv-Min/Vit C/Glut/Lysine/Hc124 1 each PO DAILY 01/06/21 01/06/21 [Airborne Tablet Chewable] metFORMIN HCL [Glucophage] 500 mg PO 1730 01/06/21 01/06/21 Previous Rx's Medication Instructions Recorded Albuterol Nebulized [Ventolin 2.5 mg INHALATION Q4H PRN #25 nebu 11/25/19 Nebulized] Allergies Allergy/AdvReac Type Severity Reaction Status Date / Time influenza virus vaccine ts Allergy Unknown Verified 09/03/21 13:07 [id number] (36 mos,up) [From Fluarix] Milk Containing Products Allergy Nausea & Verified 09/03/21 13:07 [Dairy] Vomiting & Diarrhea mold Allergy Dyspnea Verified 09/03/21 13:07 tomato Allergy Nausea & Verified 09/03/21 13:07 Vomiting & Diarrhea Review of Systems ROS Statement: Those systems with pertinent positive or pertinent negative responses have been documented in the HPI. ROS Other: All systems not noted in ROS Statement are negative. Past Medical History Past Medical History: Asthma, COPD, Diabetes Mellitus, Hyperlipidemia, Osteoarthritis (OA) Additional Past Medical History / Comment(s): Bilateral carpal tunnel. History of Any Multi-Drug Resistant Organisms: None Reported Past Surgical History: Tubal Ligation Additional Past Surgical History / Comment(s): Cysts on ovaries removed. Partial Hysterectomy(Ovaries are intact). Past Anesthesia/Blood Transfusion Reactions: No Reported Reaction Past Psychological History: No Psychological Hx Reported Smoking Status: Former smoker Past Alcohol Use History: Rare Past Drug Use History: Marijuana - Past Family History Mother Family Medical History: No Reported History General Exam Limitations: no limitations General appearance: alert, in no apparent distress Head exam: Present: atraumatic, normocephalic, normal inspection Eye exam: Present: normal appearance, PERRL, EOMI. Absent: scleral icterus, conjunctival injection, periorbital swelling ENT exam: Present: normal exam, normal oropharynx, mucous membranes moist Neck exam: Present: normal inspection, full ROM. Absent: tenderness, meningismus, lymphadenopathy, thyromegaly Respiratory exam: Present: normal lung sounds bilaterally. Absent: respiratory distress, wheezes, rales, rhonchi, stridor, chest wall tenderness, accessory muscle use, decreased breath sounds Cardiovascular Exam: Present: regular rate, normal rhythm, normal heart sounds. Absent: systolic murmur, diastolic murmur, rubs, gallop, clicks GI/Abdominal exam: Present: soft, tenderness (Epigastric), normal bowel sounds. Absent: guarding, rebound Extremities exam: Present: normal inspection, full ROM, normal capillary refill. Absent: tenderness, pedal edema, joint swelling, calf tenderness Back exam: Present: normal inspection, full ROM. Absent: tenderness, CVA t enderness (R), CVA tenderness (L), rash noted Neurological exam: Present: alert, oriented X3 Psychiatric exam: Present: normal affect, normal mood. Absent: anxious, flat affect Skin exam: Present: warm, dry, intact, normal color. Absent: rash, cyanosis, diaphoretic Course Vital Signs 09/03/21 09/03/21 13:04 18:11 Temperature 99.1 F Pulse Rate 98 76 Respiratory 16 18 Rate Blood Pressure 126/80 O2 Sat by Pulse 97 96 Oximetry Medical Decision Making - Medical Decision Making Well-appearing 56-year-old female presents to the emergency room with nausea and vomiting diarrhea since after receiving the covid booster. Patient states that she's not been able to keep any food or fluids down since . She has had multiple episodes of yellow vomiting and watery brown diarrhea. She denies any hematochezia or hematemesis. Abdomen is soft and nontender. She does have a history of asthma, COPD and diabetes. She was given a liter of fluid in the emergency room along with Zofran and is feeling better. She has not had any vomiting or diarrhea in the emergency room. There is no evidence of leukocytosis. Urinalysis shows 3+ ketones and no evidence of infection. She'll be discharged home and directed to increase her fluid intake. Stanley diet for the next 24 hours. Case discussed with Dr. Figueredo - Lab Data Result diagrams: 09/03/21 15:56 09/03/21 15:56 Lab Results 09/03/21 09/03/21 09/03/21 Range/Units 15:56 15:56 17:35 WBC 6.4 (3.8-10.6) k/uL RBC 4.64 (3.80-5.40) m/uL Hgb 14.5 (11.4-16.0) gm/dL Hct 42.7 (34.0-46.0) % MCV 92.1 (80.0-100.0) fL MCH 31.3 (25.0-35.0) pg MCHC 34.0 (31.0-37.0) g/dL RDW 13.0 (11.5-15.5) % Plt Count 231 (150-450) k/uL MPV 6.9 Neutrophils % 76 % Lymphocytes % 12 % Monocytes % 8 % Eosinophils % 2 % Basophils % 1 % Neutrophils # 4.9 (1.3-7.7) k/uL Lymphocytes # 0.7 L (1.0-4.8) k/uL Monocytes # 0.5 (0-1.0) k/uL Eosinophils # 0.2 (0-0.7) k/uL Basophils # 0.1 (0-0.2) k/uL Sodium 135 L (137-145) mmol/L Potassium 4.2 (3.5-5.1) mmol/L Chloride 101 (98-107) mmol/L Carbon Dioxide 24 (22-30) mmol/L Anion Gap 10 mmol/L BUN 21 H (7-17) mg/dL Creatinine 0.86 (0.52-1.04) mg/dL Est GFR (CKD-EPI)AfAm 89 (>60 ml/min/1.73 sqM) Est GFR (CKD-EPI)NonAf 77 (>60 ml/min/1.73 sqM) Glucose 117 H (74-99) mg/dL Calcium 9.2 (8.4-10.2) mg/dL Total Bilirubin 0.7 (0.2-1.3) mg/dL AST 45 H (14-36) U/L ALT 51 H (4-34) U/L Alkaline Phosphatase 79 (38-126) U/L Total Protein 7.2 (6.3-8.2) g/dL Albumin 4.0 (3.5-5.0) g/dL Amylase 45 (30-110) U/L Lipase 45 (23-300) U/L Urine Color Yellow Urine Appearance Clear (Clear) Urine pH 5.5 (5.0-8.0) Ur Specific [place] 1.032 (1.001-1.035) Urine Protein 1+ H (Negative) Urine Glucose (UA) Negative (Negative) Urine Ketones 3+ H (Negative) Urine Blood Moderate H (Negative) Urine Nitrite Negative (Negative) Urine Bilirubin Negative (Negative) Urine Urobilinogen 2.0 (<2.0) mg/dL Ur Leukocyte Esterase Negative (Negative) Urine RBC 6 H (0-5) /hpf Urine WBC 3 (0-5) /hpf Ur Squamous Epith Cells 6 H (0-4) /hpf Urine Bacteria Rare H (None) /hpf Hyaline Casts 4 H (0-2) /lpf Urine Mucus Many H (None) /hpf Disposition Clinical Impression: Gastroenteritis Disposition: HOME SELF-CARE Condition: Good Instructions (If sedation given, give patient instructions): Acute Nausea and Vomiting (ED), Acute Diarrhea (ED) Additional Instructions: Increase your fluid intake. For the next 24 hours participate in a bland diet, eating greasy or spicy. Return to the emergency room with any new or worsening symptoms. Follow-up with your primary care doctor as needed. Is patient prescribed a controlled substance at d/c from ED?: No Referrals: Donny Resendiz MD [Primary Care Provider] - 1-2 days Time of Disposition: 18:04
[2021-09-03 16:00] LABS: Basophils # (A) 0.1 k/uL (0-0.2); Basophils % (A) 1 %; Eosinophils # (A) 0.2 k/uL (0-0.7); Eosinophils % (A) 2 %; HCT 42.7 % (34.0-46.0); HGB 14.5 gm/dL (11.4-16.0); Lymphocytes # (A) 0.7 k/uL (1.0-4.8); Lymphocytes % (A) 12 %; MCH 31.3 pg (25.0-35.0); MCV 92.1 fL (80.0-100.0); Mean Platelet Volume 6.9; Monocytes # (A) 0.5 k/uL (0-1.0); Monocytes % (A) 8 %; Neutrophils # (A) 4.9 k/uL (1.3-7.7); Neutrophils % (A) 76 %; Platelet Count 231 k/uL (150-450); RBC 4.64 m/uL (3.80-5.40); WBC 6.4 k/uL (3.8-10.6)
[2021-09-03 16:22] LABS: Potassium 4.2 mmol/L (3.5-5.1)
[2021-09-03 16:23] LABS: Calcium 9.2 mg/dL (8.4-10.2); Total Bilirubin 0.7 mg/dL (0.2-1.3); Total Protein 7.2 g/dL (6.3-8.2)
[2021-09-03 17:45] LABS: Appearance,Urine Clear (Clear); Bacteria,Urine Rare /hpf; Bilirubin,Urine Negative (Negative); Blood,Urine Moderate (Negative); Color,Urine Yellow; Glucose,Urine (UA) Negative (Negative); Hyaline Casts,Urine 4 /lpf (0-2); Ketones,Urine 3+ (Negative); Leukocyte Esterase,Urine Negative (Negative); Mucus,Urine Many /hpf; Nitrite,Urine Negative (Negative); PH, Urine 5.5 (5.0-8.0); Protein,Urine 1+ (Negative); RBC,Urine 6 /hpf (0-5); Specific Gravity,Urine 1.032 (1.001-1.035); Squamous Epithelial Cell,Urine 6 /hpf (0-4); WBC,Urine 3 /hpf (0-5)
[2021-09-03 18:12] VITALS: PULSE 76; RESP 18
== END 2021-09-03 18:12 | disposition home or self-care (01) ==
LOC: EC 10:58
DX: K52.9 Noninfective gastroenteritis and colitis, unspecified (principal); J44.9 Chronic obstructive pulmonary disease, unspecified; E78.5 Hyperlipidemia, unspecified; E11.9 Type 2 diabetes mellitus without complications; Z87.891 Personal history of nicotine dependence; Z88.7 Allergy status to serum and vaccine; Z91.011 Allergy to milk products; Z91.018 Allergy to other foods; Z91.09 Other allergy status, other than to drugs and biological substances; Z79.899 Other long term (current) drug therapy
CPT/HCPCS: 36415; 80053; 82150; 83690; 85025; 81001; 99284; 96374; 96375; J2405

== ENCOUNTER → 2021-10-18 | Outpatient (CLI) | payer BC ==
--- NOTE | 2021-10-19 11:10 | MM ---
Reason for exam: screening (asymptomatic). Last mammogram was performed 5 years and 10 months ago. History: Patient is postmenopausal and is nulliparous. Took hormonal contraceptives for 5 years beginning at age 17. Physical Findings: A clinical breast exam by your physician is recommended on an annual basis and results should be correlated with mammographic findings. MG 3D Screening Mammo W/Cad Bilateral CC and MLO view(s) were taken. Prior study comparison: December 16, 2015, bilateral MG 3d work up w/cad RAMON. December 13, 2015, bilateral MG screening mammo w CAD. The breast tissue is heterogeneously dense. This may lower the sensitivity of mammography. No significant changes when compared with prior studies. ASSESSMENT: Benign, BI-RAD 2 RECOMMENDATION: Routine screening mammogram of both breasts in 1 year.
== END | disposition home or self-care (01) ==
LOC: RADMAMWWP 08:41
PROVIDERS: ATTEND Pediatrics
DX: Z12.31 Encounter for screening mammogram for malignant neoplasm of breast (principal)
CPT/HCPCS: 77063; 77067

== ENCOUNTER → 2021-11-01 | Outpatient (CLI) | payer BC ==
--- NOTE | 2021-11-01 12:02 | US ---
EXAMINATION TYPE: US pelvic complete DATE OF EXAM: 11/01/2021 COMPARISON: NONE CLINICAL HISTORY: R10.2 Pelvic Pain. Hx of hysterectomy 2004; patient complains of intermittent pelvi c pain for 3 years. TECHNIQUE: Transabdominal (TA). EXAM MEASUREMENTS: Uterus: Surgically absent Endometrial Stripe: Surgically absent Right Ovary: 2.2 x 1.5 x 1.8 cm Left Ovary: 2.4 x 1.6 x 1.7 cm 1. Uterus: Surgically absent 2. Endometrium: Surgically absent 3. Right Ovary: Appears wnl 4. Left Ovary: Appears wnl 5. Bilateral Adnexa: wnl 6. Posterior cul-de-sac: wnl Uterus surgically absent. No free fluid in the pelvis. Symmetric small size ovaries corresponds to cayla toro's postmenopausal age. No concerning adnexal mass. Images of bladder appear within normal limits . IMPRESSION: No adnexal masses noted.
== END | disposition home or self-care (01) ==
LOC: RADUSWWP 09:54
PROVIDERS: ATTEND Pediatrics
DX: R10.2 Pelvic and perineal pain (principal)
CPT/HCPCS: 76856

== ENCOUNTER → 2022-02-23 | Outpatient (CLI) | payer BC ==
--- NOTE | 2022-02-23 14:45 | XR ---
EXAMINATION TYPE: XR chest 2V DATE OF EXAM: 02/23/2022 COMPARISON: Chest x-ray 11/25/2019 HISTORY: Presurgical testing TECHNIQUE: Frontal and lateral views of the chest are obtained. FINDINGS: There is no focal air space opacity, pleural effusion, or pneumothorax seen. The cardiac silhouette size is within normal limits. Right hemidiaphragm is elevated. The osseous structures are intact. IMPRESSION: No acute cardiopulmonary process.
== END | disposition home or self-care (01) ==
LOC: LABPAT 09:57
PROVIDERS: ATTEND Orthopaedic Surgery Orthopaedic Surgery of the Spine
DX: Z01.812 Encounter for preprocedural laboratory examination (principal); M48.07 Spinal stenosis, lumbosacral region
CPT/HCPCS: 71046; 87070

== ENCOUNTER → 2022-02-23 | Outpatient (CLI) | payer BC ==
[2022-02-23 17:02] LABS: INR 0.9 (<1.2); Prothrombin Time 10.2 sec (9.0-12.0)
[2022-02-23 23:39] LABS: Basophils # (A) 0.07 X 10*3/uL (0.00-0.10); Basophils % (A) 1.2 %; Eosinophils # (A) 0.15 X 10*3/uL (0.04-0.35); Eosinophils % (A) 2.7 %; HCT 40.3 % (37.2-46.3); HGB 12.5 g/dL (12.0-15.0); Immature Grans, Automated 0.4 %; Lymphocytes # (A) 2.04 X 10*3/uL (0.90-5.00); Lymphocytes % (A) 36.1 %; MCH 29.8 pg (27.0-32.0); Mean Platelet Volume 9.8 fL (9.5-12.2); Monocytes # (A) 0.42 X 10*3/uL (0.20-1.00); Monocytes % (A) 7.4 %; NRBC Per 100 WBC 0 /100 WBCS (0.0-0.0); Neutrophils # (A) 2.95 X 10*3/uL (1.80-7.70); Neutrophils % (A) 52.2 %; Platelet Count 350 X 10*3/uL (140-440); RDW 12.7 % (11.5-14.5); WBC 5.65 X 10*3/uL (4.50-10.00)
[2022-02-24 03:01] LABS: Appearance,Urine Clear (Clear); Bilirubin,Urine Negative (Negative); Blood,Urine Negative (Negative); Color,Urine Yellow (Yellow); Ketones,Urine Negative (Negative); Nitrite,Urine Negative (Negative); Specific Gravity,Urine 1.018 (1.001-1.030); Urobilinogen,Urine 0.2 (0.2,1.0)
[2022-02-24 04:00] LABS: African American GFR (CKD) 72.9 (60.0-200.0); Albumin 4.6 g/dL (3.8-4.9); Albumin/Globulin Ratio 1.92 (1.60-3.17); Anion Gap 14.8 mmol/L (10.00-18.00); BUN/Creat Ratio 11.2 Ratio (12.00-20.00); Blood Urea Nitrogen 11.2 mg/dL (9.0-27.0); Calcium 9.5 mg/dL (8.7-10.3); Carbon Dioxide 22.2 mmol/L (20.0-27.5); Globulin 2.4 g/dL (1.6-3.3); Non-African American GFR(CKD) 62.9 (60.0-200.0); Potassium 4.7 mmol/L (3.5-5.5); Total Bilirubin 0.3 mg/dL (0.30-1.20)
== END | disposition home or self-care (01) ==
LOC: LABWHC1 09:47
PROVIDERS: ATTEND Pediatrics
DX: E11.9 Type 2 diabetes mellitus without complications (principal)
CPT/HCPCS: 36415; 80053; 81003; 83036; 85025; 85610; 85730

== ENCOUNTER 2022-03-08 09:54 | Inpatient (IN) | payer BC ==
[2022-03-07 10:25] VITALS: BMI 32.9
[~2022-03-08 09:54] MED LIST changes: +DEXAMETHASONE SOD PHOSPHATE 4 MG/ML 1 ML VIAL IV ONE; +MIDAZOLAM 2 MG/2 ML VIAL IV PRN; +ONDANSETRON 4 MG/2 ML VIAL IVP ONE; +ceFAZolin 1,000 MG in SODIUM CHLORIDE 0.9% IRRIGATIO 1,000 ML IRRIGATION PRN
[2022-03-08 10:44] LABS: Glucose,Whole Blood 101 mg/dL (75-99)
[2022-03-08] MEDS ORDERED: THROMBIN (BOVINE) 5,000 UNIT VIAL TOPICAL ONE (11:25)
[2022-03-08] MEDS ORDERED: SUCCINYLCHOLINE CHLORIDE 100 MG/5 ML SYR IV ONE (11:40)
[2022-03-08] MEDS ORDERED: fentaNYL (PF) 50 MCG/ML 2 ML AMP ONE (11:40)
[2022-03-08] MEDS ORDERED: PROPOFOL 10 MG/ML 20 ML VIAL IV ONE (11:40)
[2022-03-08] MEDS ORDERED: GLYCOPYRROLATE 0.2 MG/ML 2 ML VIAL ONE (11:40)
[2022-03-08] MEDS ORDERED: LIDOCAINE 2% INJ 20 MG/ML (2 ML VIAL) ONE (11:40)
[2022-03-08] MEDS ORDERED: MIDAZOLAM 2 MG/2 ML VIAL ONE (11:40)
[2022-03-08] MEDS ORDERED: KETAMINE 10 MG/ML 20 ML VIAL ONE (11:40)
[2022-03-08] MEDS ORDERED: ROCURONIUM 10 MG/ML (5 ML VIAL) IV ONE (11:40)
[2022-03-08] MEDS ORDERED: HYDROmorphone (PF) 1 MG/ML ONE (11:40)
[2022-03-08] MEDS ORDERED: NEOSTIGMINE 1 MG/ML 10 ML VIAL ONE (11:40)
[2022-03-08] MEDS ORDERED: GELATIN SPONGE,ABSORB (LARGE) 1 EACH SPONGE TOPICAL ONE (11:45)
[2022-03-08] MEDS ORDERED: LIDOCAINE 0.5%-EPI 1:200,000 50 ML VIAL SQ ONE (11:45)
[2022-03-08] MEDS ORDERED: LACTATED RINGERS 1,000 ML IV ONE (13:51)
[2022-03-08] MEDS ORDERED: BENZOCAINE/MENTHOL LOZENG 1 EACH LOZENGE MUCOUS MEM PRN (15:31)
[2022-03-08] MEDS ORDERED: SENNOSIDES-DOCUSATE SODIUM 1 EACH TAB PO PRN (15:31)
[2022-03-08] MEDS ORDERED: ONDANSETRON 4 MG/2 ML VIAL IVP PRN (15:31)
[2022-03-08] MEDS ORDERED: HYDROmorphone 0.5 MG/0.5 ML SYRINGE IVP PRN (15:31)
[2022-03-08] MEDS: HYDROmorphone 0.5 MG/0.5 ML SYRINGE IVP PRN ×3 (15:41→16:02)
[2022-03-08] MEDS ORDERED: ALBUTEROL HFA INHALER INHALATION PRN (15:45)
[2022-03-08] MEDS ORDERED: ALBUTEROL NEBULIZED 2.5 MG/3 ML INHALATION PRN (15:45)
--- NOTE | 2022-03-08 15:51 | P.OP ---
Date of Procedure: 03/08/22 Preoperative Diagnosis: Spinal stenosis L4 5 L5-S1, herniated nucleus pulposis L4 5 L5-S1, degenerative disc disease L4 5 L5-S1, low back pain, lower extremity radiculopathy, facet arthrosis Postoperative Diagnosis: Same Anesthesia: GETA Pathology: none sent Condition: stable Disposition: PACU Description of Procedure: DESCRIPTION OF PROCEDURE(S): BRIEF OPERATIVE NOTE Preoperative Diagnosis: Spinal stenosis L4 5 L5-S1, herniated nucleus pulposis L4 5 L5-S1, degenerative disc disease L4 5 L5-S1, low back pain, lower extremity radiculopathy, facet arthrosis Postoperative Diagnosis: Same Procedure: Laminectomy and decompression L4 5 L5-S1 Computer CT navigation aided Minimally invasive Posterior lateral decompression and facet fusion L4 5 L5-S1 Minimally invasive Transforaminal lumbar interbody fusion for a 360 fusion L4 5 L5-S1 Discectomy for decompression L4 5 L5-S1 Placement of interbody graft L4 5 L5-S1 Use of computer navigation for fusion L4 5 and S1 Local autogenous bone grafting along with small portion of iliac crest bone graft Aspiration of bone marrow from the vertebral body pedicle L4 on the right Use of bone graft extenders Surgeon: Dr. Toth [employer] Professional: Freddie LUBIN who is present throughout the entire the case persistence during positioning, dissection, exposure, visualization, and all crucial elements of the case as well as closure. Anesthesia: General anesthesia per Estimated blood loss: Approximately 200 mL, with 70 mL given back through Cell Saver Complications: None apparent Components implanted: K2M minimally invasive [place] pedicle screw system withscrews measuring 6.5 mm in diameter to rods one [place] interbody cage as well as a expandable 8-13 interbody cage and with 10 mL of osteo amp bio4 bone graft substitute and 30 mL of the BX bone fibers to supplement the local autogenous bone graft and bone marrow aspirate Disposition: To recovery room in good stable condition. OPERATIVE INDICATIONS The patient has had severe issues at their lower extremity in her lower back over the past several years with significant worsening over the past several months. Over the past few months the patient had pain at their back and their lower extremities. The patient is having severe radicular symptoms at their lower extremity with weakness. The patient is having significant pain in their back. They are unable to obtain any comfort. We did aggressive conservative treatment with medications therapy and interventional pain management however thery were not having any relief. She has been involved in aggressive conservative care over the past 6 years. The patient has been through conservative treatment. We discussed various treatment options including surgery, and the patient wishes to proceed with surgery We discussed the risk, patient's alternatives and benefits of surgery including but not limited to, risk of bleeding risk of infection, risk of need for further surgery, risk of decreased, loss of motion, muscle function, malunion nonunion, hardware failure, nerve damage, paralysis, heart attack, blindness and . They understood issues with the current pandemic and the possibility of exposure. OPERATIVE SUMMARY After discussing all the risks, patient alternatives and benefits at length, the patient elected to proceed with surgical intervention, signed informed consent, and presented for their procedure. The patient was seen and examined in the preoperative holding area and the surgical site was marked. The patient was given antibiotics and brought to the operating room. The patient was sedated and intubated by anesthesia in standard fashion. The patient was positioned on to the operating room table in a prone position on the appropriate frame which was well-padded and well molded. We were careful to pad any bony prominences and pressure points. We were careful to maintain the patient's cervical spine and good neutral alignment and position throughout. The patient was prepped and draped in a normal standard fashion. An appropriate timeout and keystone protocol performed. We were able to proceed with the surgery. The local wound area was infiltrated with local anesthetic. Over the right iliac crest I was able to make small stab incisions and establish a guidepin screw fixation to the iliac crest 2. I was able place the computer referencing device over the guidepins to establish an appropriate reference point for the Ziem CT navigation. We then were able to place patient in an appropriate drape and do a navigation spin for visualization and 3-D reconstruction of the lumbar spine. I was able utilize C-arm guidance and navigation to establish appropriate position over the pedicles bilaterally at the appropriate levels . With the appropriate levels confirmed was able to make small incisions over the appropriate pedicle sites bilaterally. Utilizing the computer navigation device I was able to establish bony landmarks at the right iliac crest for a bony reference point for the navigation device. I was able to establish a Jamshidi needle over the lateral aspect of the pedicle and advanced the trocar into the pedicle being careful not to breech superiorly inferiorly medially or laterally using computer navigation device. Position was confirmed regularly with AP and lateral images on C-arm and with the computer navigation device at the appropriate levels bilaterally. I was able to establish the trocar into the pedicle appropriately into the posterior aspect of the vertebral body bilaterally at the appropriate levels at L4-L5 and S1 bilaterally. This was done at each of the pedicle positions and each of the vertebrae. At the superior vertebrae of L4 on the right I was able to take approximately 25 mL of bone aspiration for use later in the case to supplement the allograft and autograft bone. I was able place the guidewire into the trocar and into the vertebral body appropriately under C-arm guidance. Dissection was taken down over the wire to the appropriate starting position for the screw placed. The appropriate length screw was chosen, threaded over the guidewire and screwed appropriately into the pedicle and vertebral body under C-arm guidance in ex cellent alignment and position with good bony purchase. This is done at each of the screw sites at the appropriate levels at L4-L5 and S1 bilaterally . With the screws intact I extended the incision to connect the screw hole sites on the most symptomatic side On the right. I dissected down to establish access over the pars and lamina to the base of the spinous process. I was able to expose the facet joint. The capsule the facet was taken down and showed some facet arthrosis at the joint. On the right side at L5-S1 I had to take down a small portion of iliac crest in order to gain access for the retractor and space for these further decompression. I was able to save this portion of bone for autogenous bone grafting as well. I was able to use a combination of curettes and Kerrison rongeurs and a high-speed drill to take down the facet joint and do a facetectomy. I was able get excellent foraminal decompression and central decompression with undermining across midline to perform a laminectomy centrally and contralaterally. As able get good central decompression. At L5-S1 there is severe disc height loss at L4 5 there is significant disc degeneration and stenosis as well. The ligamentum flavum was taken down to further decompress centrally and at bilateral neural foramen. I was able to expose the disc space and visualize the traversing nerve root. Note was made of some disc protrusion and disc herniation that was abutting the traversing nerve root at the level causing further compression of the nerve root. I was able to establish a annulotomy at the appropriate level protecting soft tissue and neural structures. Note was made of some disc desiccation at the disc. I performed a complete discectomy with accommodation of curettes and rasps and scrapers. I was able get good endplate preparation at the disc space. I sized for the appropriate size interbody spacer protecting the soft tissue and neural structures. The wound was copiously irrigated and suctioned dry. There is no evidence of any dural tear or leak. I was able to pack the disc space with local autogenous bone graft as well as a small amount of bone graft which was also placed into the interbody cage itself. Protecting the soft tissue structures and neural structures I was able place the interbody cage in good alignment and good position with good fit and fill at the interbody space. Position was confirmed with C-arm guidance.Was done first at L5-S1 and then similarly at L4 5 Good hemostasis maintained. There is no evidence of any dural tear or leak. The wound was irrigated and suctioned dry. With the hardware intact, intraoperative C-arm imaging was again taken which showed good alignment and position of the hardware at the appropriate levels At L4 5 and L5-S1. We were then able to measure, contour and place the rods and appropriate hardware bilaterally. I was able to place capcrews, tighten them down, and torque them with the torque screwdriver appropriately. With this intact I was able to place the local autogenous bone graft with additional bone graft enhancer as necessary into the posterior lateral gutters over the decorticated transverse processes and facet joints on the contralateral side. The remainder of the bone graft was placed over the facet joint on the contralateral side after taking down the facet joint capsule. With the bone graft intact, a stable construct, and good decompression at the appropriate levels, we were able to proceed with closure. Good hemostasis was maintained. There is no evidence of dural tear or leak. The fascia was closed for a watertight closure. he subcuticular tissue was closed with absorbable suture. The wound was cleaned and dried and dressed with the appropriate dressing. The drapes were broken down. The patient was gently rolled back onto their hospital bed being careful to maintain their cervical spine and good neutral alignment and position. They were woken up by anesthesia, extubated, and brought to the recovery room in good stable condition. The patient will be admitted to the hospital for appropriate postoperative care, medical management and monitoring. We will continue to follow them closely about the postoperative course.
[2022-03-08] MEDS ORDERED: SODIUM CHLORIDE 0.9% 1,000 ML IV ONE ×2 (16:03)
[2022-03-08 16:16] LABS: Glucose,Whole Blood 147 mg/dL (75-99)
[2022-03-08] MEDS: SODIUM CHLORIDE 0.9% 1,000 ML IV SCH (17:58)
[2022-03-08] MEDS: metFORMIN 500 MG TAB PO SCH (17:58)
[2022-03-08] MEDS: MONTELUKAST 10 MG TAB PO SCH (19:50)
[2022-03-08] MEDS: HYDROmorphone 1 MG/ML 1 ML SYRINGE IVP PRN (19:50)
[2022-03-08] MEDS: CYCLOBENZAPRINE 10 MG TAB PO PRN (22:02)
[2022-03-09] MEDS: ONDANSETRON 4 MG/2 ML VIAL IVP PRN ×3 (00:11→15:08)
[2022-03-09] MEDS: HYDROmorphone 1 MG/ML 1 ML SYRINGE IVP PRN ×5 (00:11→19:35)
[2022-03-09] MEDS: SODIUM CHLORIDE 0.9% 1,000 ML IV SCH (04:15)
[2022-03-09] MEDS: SENNOSIDES-DOCUSATE SODIUM 1 EACH TAB PO SCH (06:57)
[2022-03-09] MEDS: CYCLOBENZAPRINE 10 MG TAB PO PRN ×2 (06:57→17:17)
[2022-03-09] MEDS: HYDROcodone/APAP 10-325MG 1 EACH TAB PO PRN ×3 (06:57→22:39)
--- NOTE | 2022-03-09 09:39 | P.PN ---
Progress Note - Text Progress Note Date: 03/09/22 Postoperative day #1 Patient is seen and examined today at bedside. The patient has some pain around the surgical site as expected. Pain is being controlled with medication. She is up in a chair. She has had very small amounts of food. She was nauseous last night but that seems to be resolving. Physical Exam Afebrile with stable vital signs Abdomen is soft nontender. Chest has good excursion deep and space expiration The incision site is clean dry and intact. No erythema there is no purulence. Extremities have not had neurologic change from prior to surgery. She has sustained dorsal flexion plantar flexion and EHL intact. Calves and thighs were soft nontender without evidence of DVT. Assessment/Plan Postoperative day #1 status post minimally invasive decompression fusion at L45 L5-S1 for her severe disc degeneration with spinal stenosis and lower extremity radiculopathy Patient is progressing as expected from the surgery. She is quite sore this morning but she has been able to mobilize and I think she'll continue to make steady improvement. Her nausea has resolved and she feels like she will be able to eat lunch. We will continue to increase the patient's mobilization with therapy. She has assistive devices already at home for and granulation including cane walker and wheelchair if she needs We will continue pain control with oral or IV medications. We'll continue to follow patient closely.
[2022-03-09 10:42] LABS: Basophils # (A) 0.06 X 10*3/uL (0.00-0.10); Basophils % (A) 0.6 %; Eosinophils # (A) 0.02 X 10*3/uL (0.04-0.35); Eosinophils % (A) 0.2 %; HCT 33.8 % (37.2-46.3); Immature Grans, Automated 0.6 %; Lymphocytes # (A) 1.65 X 10*3/uL (0.90-5.00); Lymphocytes % (A) 15.3 %; MCH 30.4 pg (27.0-32.0); MCHC 32.5 g/dL (32.0-37.0); MCV 93.4 fL (80.0-97.0); Mean Platelet Volume 9.8 fL (9.5-12.2); Monocytes # (A) 0.82 X 10*3/uL (0.20-1.00); Monocytes % (A) 7.6 %; NRBC Per 100 WBC 0 /100 WBCS (0.0-0.0); Neutrophils # (A) 8.18 X 10*3/uL (1.80-7.70); Neutrophils % (A) 75.7 %; Platelet Count 263 X 10*3/uL (140-440); RBC 3.62 X 10*6/uL (4.10-5.20); RDW 12.4 % (11.5-14.5); WBC 10.79 X 10*3/uL (4.50-10.00)
[2022-03-09 10:52] LABS: African American GFR (CKD) 95.5 (60.0-200.0); Anion Gap 10.9 mmol/L (10.00-18.00); BUN/Creat Ratio 11.25 Ratio (12.00-20.00); Calcium 8.8 mg/dL (8.7-10.3); Carbon Dioxide 24.1 mmol/L (20.0-27.5); Non-African American GFR(CKD) 82.4 (60.0-200.0); Potassium 3.9 mmol/L (3.5-5.5)
--- NOTE | 2022-03-09 13:27 | XR ---
EXAM TYPE: LUMBAR SPINE X RAY SERIES COMPARISON: NONE HISTORY: Intraoperative images TECHNIQUE: 2 views are submitted. FINDINGS: Resolution is markedly limited exam is nondiagnostic. IMPRESSION: 1. See above.
--- NOTE | 2022-03-09 13:45 | P.CONS ---
History of Present Illness - Reason for Consult Consult date: 03/08/22 Medical management Requesting physician: Lee Toth - Chief Complaint Lumbar surgery - History of Present Illness This is a 57-year-old pleasant patient, follows with Dr. Resendiz. Patient's had lumbar pain for about 6 years. Getting worse in the last 2 years. He does sometimes go down the light from extremity. She does walk with a shuffled gait and a flexed posture. She was previously following with Dr. Jaiden García at the [place] [facility] did receive steroid injections. Positive manages at failed. Also started the loss of urine issues. Patient's front or spinal stenosis and herniated nucleus pulposus in the lower lumbar area. With regard adenopathy. Patient underwent decompressive surgery by Dr. Whitmore. I saw the patient postprocedure. Laying in bed. Pain at the operative site. Mcgrath catheter. Slight nausea. Uncomfortable. No chest pain or shortness of breath. Chronic stable medical conditions include COPD, diabetes, hypertension, hyperli pidemia. Review of systems: GEN.: None EYES: None HEENT: None NECK: None RESPIRATORY: None CARDIOVASCULAR: None GASTROINTESTINAL: Some nausea GENITOURINARY: None MUSCULOSKELETAL: As above LYMPHATICS: None HEMATOLOGICAL: None PSYCHIATRY: None NEUROLOGICAL: Trouble walking because of back pain Past medical history to include: COPD, diabetes, hyperlipidemia,'s lumbar spinal stenosis, herniated disc, DJD Social history: . 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 Stop smoking 3 years ago. Started smoking at age of 17. Alcohol rarely. Does use CBD edibles at times for pain. Family history: Reviewed, noncontributory to presentation Physical examination: VITAL SIGNS: 98.5, 97, 20, 100/76, 98% on 2 L GENERAL: BMI 33.4, declining a better bit uncomfortable. EYES: Pupils equal. Conjunctiva normal. HEENT: External appearance of nose and ears normal, oral cavity grossly normal. NECK: JVD not raised; masses not palpable. HEART: First and second heart sounds are normal; no edema. LUNGS: Respiratory rate normal; decreased breath sounds. ABDOMEN: Soft, nontender, liver spleen not palpable, no masses palpable. Mcgrath catheter PSYCH: Alert and oriented x3; mood and affect a bit anxiousl. MUSCULOSKELETAL:No Clubbing/cyanosis;muscles-grossly intact. Dressing over the operative site NEUROLOGICAL: Cranial nerves grossly intact; no facial asymmetry, power and sensation grossly intact. LYMPHATICS: No lymph nodes palpable in the axilla and neck INVESTIGATIONS, reviewed in the clinical context: [02/23/2022: White count 5.6 hemoglobin 12.5 platelets 350 potassium 4.7 creatinine 1.0 UA negative Assessment and plan: -Spinal stenosis L4 5 L5-S1, herniated nucleus pulposis L4 5 L5-S1, degenerative disc disease L4 5 L5-S1, low back pain, lower extremity radiculopathy, facet arthrosis Patient underwent laminectomy decompression by Dr. Whitmore on 03/08/2022 -Obesity BMI 33.4 Weight loss measures -Diabetes mellitus type 2, on oral hypoglycemic Resume metformin. Follow Accu-Cheks. -COPD in a previous smoker Short-acting beta agonist when necessary, Singulair 10 mg daily at bedtime -Gait dysfunction secondary to lumbar spine orthopedic causes Fall precaution Patient has Dilaudid and [place] for pain control. Mcgrath catheter. Home medications and resume. IV fluids. Activity per orthopedics. Follow Accu- Cheks. Sliding scale insulin. Care was discussed the patient question also. Thank you Dr. Toth Past Medical History Past Medical History: Asthma, COPD, Diabetes Mellitus, Hyperlipidemia, Pneumonia Additional Past Medical History / Comment(s): Bilateral carpal tunnel. degenerative disks, History of Any Multi-Drug Resistant Organisms: None Reported Past Surgical History: Hysterectomy, Tubal Ligation Additional Past Surgical History / Comment(s): Cysts on ovaries removed. Past Anesthesia/Blood Transfusion Reactions: No Reported Reaction Past Psychological History: No Psychological Hx Reported Smoking Status: Former smoker Past Alcohol Use History: Rare Additional Past Alcohol Use History / Comment(s): Quit smoking 3 years ago, started smoking age 17 Past Drug Use History: Marijuana Additional Drug Use History / Comment(s): CBD, Uses edibles once in a while for pain. Aware no use 24 hrs prior to procedure. - Past Family History Mother Family Medical History: No Reported History Medications and Allergies Home Medications Medication Instructions Recorded Confirmed Type Albuterol Nebulized [Ventolin 2.5 mg INHALATION Q4H PRN #25 nebu 11/25/19 03/07/22 Rx Nebulized] HYDROcodone/APAP 7.5-325MG [[place] 1 tab PO TID PRN 11/25/19 03/07/22 History 7.5-325] metFORMIN HCL [Glucophage] 500 mg PO W/SUPPER 01/06/21 03/07/22 History Albuterol Inhaler [Ventolin Hfa 1 puff INHALATION DIRECTED PRN 03/07/22 03/07/22 History Inhaler] Montelukast Sodium [Singulair] 10 mg PO HS 03/07/22 03/07/22 History Allergies Allergy/AdvReac Type Severity Reaction Status Date / Time influenza virus vaccine ts Allergy Unknown Verified 03/07/22 10:15 [id number] (36 mos,up) [From Fluarix] Milk Containing Products Allergy Nausea & Verified 03/07/22 10:15 [Dairy] Vomiting & Diarrhea mold Allergy Dyspnea Verified 03/07/22 10:15 oxycodone Allergy Nausea & Verified 03/07/22 10:15 Vomiting tomato Allergy Nausea & Verified 03/07/22 10:15 Vomiting & Diarrhea Physical Exam Vitals: Vital Signs Temp Pulse Pulse Pulse Resp BP BP 03/08/22 17:33 98.5 F 97 20 118/76 03/08/22 17:01 88 16 107/53 03/08/22 16:49 86 16 122/58 03/08/22 16:24 82 16 132/63 03/08/22 16:09 94 16 132/63 03/08/22 15:54 65 16 126/61 03/08/22 15:39 79 18 140/63 03/08/22 15:24 97.2 F L 94 16 151/86 03/08/22 10:50 97 F L 81 20 133/81 03/08/22 10:30 97 F L 81 20 133/81 Pulse Ox 03/08/22 17:33 98 03/08/22 17:01 100 03/08/22 16:49 100 03/08/22 16:24 100 03/08/22 16:09 100 03/08/22 15:54 100 03/08/22 15:39 100 03/08/22 15:24 100 03/08/22 10:50 97 03/08/22 10:30 97 Intake and Output 03/08/22 03/08/22 03/08/22 06:59 14:59 22:59 Intake Total 1751 750 Output Total 571 Balance 1751 179 Intake: IV 1751 750 Output: Urine 550 Emesis 1 Estimated Blood Loss 20 Other: Weight 82.9 kg Results CBC & Chem 7: 03/09/22 08:13 03/09/22 08:13 Labs: Abnormal Lab Results - Last 24 Hours (Table) 03/08/22 03/08/22 Range/Units 10:38 16:14 POC Glucose (mg/dL) 101 H 147 H (75-99) mg/dL
--- NOTE | 2022-03-09 16:57 | P.PN ---
Progress Note - Text Progress Note Date: 03/09/22 - Chief Complaint Lumbar surgery - History of Present Illness This is a 57-year-old pleasant patient, follows with Dr. Resendiz. Patient's had lumbar pain for about 6 years. Getting worse in the last 2 years. He does sometimes go down the light from extremity. She does walk with a shuffled gait and a flexed posture. She was previously following with Dr. Jaiden García at the [place] [facility] did receive steroid injections. Positive manages at failed. Also started the loss of urine issues. Patient's front or spinal stenosis and herniated nucleus pulposus in the lower lumbar area. With regard adenopathy. Patient underwent decompressive surgery by Dr. Whitmore. I saw the patient postprocedure. Laying in bed. Pain at the operative site. Mcgrath catheter. Slight nausea. Uncomfortable. No chest pain or shortness of breath. Chronic stable medical conditions include COPD, diabetes, hypertension, hyperlipidemia. March 09: Sitting up in a chair. Mcgrath catheter is out. Made urine. No flatus. Pain at the operative site. Muscle spasm. No nausea vomiting. Did tolerate some diet. Active Medications Hydrocodone Bitart/Acetaminophen (Hydrocodone/Apap 10-325mg 1 Each Tab) 1 each PO Q6H PRN PRN Reason: Severe Pain Stop: 04/07/22 15:32 Last Admin: 03/09/22 12:42 Dose: 1 each Hydrocodone Bitart/Acetaminophen (Hydrocodone/Apap 7.5-325mg 1 Each Tab) 1 each PO TID PRN PRN Reason: Moderate Pain Stop: 04/07/22 15:46 Albuterol Sulfate (Albuterol Nebulized 2.5 Mg/3 Ml) 2.5 mg INHALATION RT-Q4H PRN PRN Reason: Shortness Of Breath Stop: 04/07/22 15:46 Benzocaine/Menthol (Benzocaine/Menthol Lozeng 1 Each Lozenge) 1 each MUCOUS MEM Q4HR PRN PRN Reason: Sore Throat Stop: 04/07/22 15:32 Last Admin: 03/08/22 23:38 Dose: 1 each Cyclobenzaprine HCl (Cyclobenzaprine 10 Mg Tab) 10 mg PO TID PRN PRN Reason: Muscle Spasm Stop: 04/07/22 15:32 Last Admin: 03/09/22 06:57 Dose: 10 mg Hydromorphone HCl (Hydromorphone 0.5 Mg/0.5 Ml Syringe) 0.5 mg IVP Q4HR PRN PRN Reason: Pain Stop: 04/07/22 15:32 Hydromorphone HCl (Hydromorphone 1 Mg/Ml 1 Ml Syringe) 1 mg IVP Q4HR PRN PRN Reason: Pain Stop: 04/07/22 15:32 Last Admin: 03/09/22 15:08 Dose: 1 mg Metformin HCl (Metformin 500 Mg Tab) 500 mg PO W/SUPPER JOSE DE JESUS Stop: 04/07/22 17:31 Last Admin: 03/08/22 17:58 Dose: Not Given Montelukast Sodium (Montelukast 10 Mg Tab) 10 mg PO HS JOSE DE JESUS Stop: 04/07/22 21:01 Last Admin: 03/08/22 19:50 Dose: 10 mg Ondansetron HCl (Ondansetron 4 Mg/2 Ml Vial) 4 mg IVP Q6HR PRN PRN Reason: Nausea And Vomiting Stop: 04/07/22 15:32 Last Admin: 03/09/22 15:08 Dose: 4 mg Senna/Docusate Sodium (Sennosides-Docusate Sodium 1 Each Tab) 1 each PO DAILY JOSE DE JESUS Stop: 04/08/22 09:01 Last Admin: 03/09/22 06:57 Dose: 1 each Senna/Docusate Sodium (Sennosides-Docusate Sodium 1 Each Tab) 2 each PO DAILY PRN PRN Reason: Constipation Stop: 04/07/22 15:32 Past medical history to include: COPD, diabetes, hyperlipidemia,'s lumbar spinal stenosis, herniated disc, DJD Social history: . 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 Stop smoking 3 years ago. Started smoking at age of 17. Alcohol rarely. Does use CBD edibles at times for pain. Family history: Reviewed, noncontributory to presentation Physical examination: VITAL SIGNS: 15, 90, 19, 1 month 7/70, 100% room air GENERAL: Sitting up in a chair, awake comfortable. EYES: Pupils equal. Conjunctiva normal. HEENT: External appearance of nose and ears normal, oral cavity grossly normal. NECK: JVD not raised; masses not palpable. HEART: First and second heart sounds are normal; no edema. LUNGS: Respiratory rate normal; decreased breath sounds. ABDOMEN: Soft, nontender, liver spleen not palpable, no masses palpable. Mcgrath catheter PSYCH: Alert and oriented x3; mood and affect a bit anxiousl. MUSCULOSKELETAL:No Clubbing/cyanosis;muscles-grossly intact. Dressing over the operative site NEUROLOGICAL: Cranial nerves grossly intact; no facial asymmetry, power and sensation grossly intact. INVESTIGATIONS, reviewed in the clinical context: March 09: Count 10.7 hemoglobin 11 platelets 263 potassium 3.9 creatinine 0.8 [02/23/2022: White count 5.6 hemoglobin 12.5 platelets 350 potassium 4.7 creatinine 1.0 UA negative Assessment and plan: -Spinal stenosis L4 5 L5-S1, herniated nucleus pulposis L4 5 L5-S1, degenerative disc disease L4 5 L5-S1, low back pain, lower extremity radiculopathy, facet arthrosis Patient underwent laminectomy decompression by Dr. Whitmore on 03/08/2022 -Obesity BMI 33.4 Weight loss measures -Diabetes mellitus type 2, on oral hypoglycemic Resume metformin. Follow Accu-Cheks. -COPD in a previous smoker Short-acting beta agonist when necessary, Singulair 10 mg daily at bedtime -Gait dysfunction secondary to lumbar spine orthopedic causes Fall precaution -Mild acute postprocedure blood loss anemia, expected from surgery Add ferrous sulfate Discussed with patient. Increase activity as tolerated. Follow Accu-Cheks for sliding scale. Thank you Dr. Toth
[2022-03-09] MEDS: FERROUS SULFATE 325 MG TAB PO SCH (17:16)
[2022-03-09] MEDS: metFORMIN 500 MG TAB PO SCH (17:16)
[2022-03-09 17:22] LABS: Glucose,Whole Blood 129 mg/dL (75-99)
[2022-03-09] MEDS: INSULIN ASPART (NovoLOG) 100 UNIT/ML VIAL SQ SCH (17:29)
[2022-03-09] MEDS: MONTELUKAST 10 MG TAB PO SCH (19:35)
[2022-03-09 20:27] LABS: Glucose,Whole Blood 137 mg/dL (75-99)
[2022-03-10] MEDS: HYDROmorphone 1 MG/ML 1 ML SYRINGE IVP PRN ×4 (00:02→23:36)
[2022-03-10] MEDS: ONDANSETRON 4 MG/2 ML VIAL IVP PRN (00:03)
[2022-03-10 06:51] LABS: Glucose,Whole Blood 116 mg/dL (75-99)
[2022-03-10] MEDS: INSULIN ASPART (NovoLOG) 100 UNIT/ML VIAL SQ SCH ×3 (06:59→17:52)
[2022-03-10] MEDS: SENNOSIDES-DOCUSATE SODIUM 1 EACH TAB PO SCH (07:14)
[2022-03-10] MEDS: FERROUS SULFATE 325 MG TAB PO SCH ×2 (07:14→17:46)
[2022-03-10] MEDS: CYCLOBENZAPRINE 10 MG TAB PO PRN (08:22)
--- NOTE | 2022-03-10 09:13 | P.PN ---
Progress Note - Text Progress Note Date: 03/10/22 Orthopedic Spine History of present illness: Patient is a pleasant 57-year-old female who is seen and examined at the bedside following posterior lateral decompression and fusion performed Sunday. Patient states they are doing okay post operatively. She continues to have some low back pain postoperatively. She states she feels soreness in her legs bilaterally. She has been able to ambulate to the restroom. She has been able to ambulate with the assistance of physical therapy. She does continue to utilize a walker to aid in ambulation. She states she does have a walker at home. Her pain is being controlled with oral and IV pain medications. Her mobility and changing of positions is slow. She does not currently feel she is ready for discharge home. Currently does not complain of nausea, vomiting, fever, or chills. Patient is eating without difficulty. Patient states she is voiding independently but her stream is not as strong as it was previously. Physical Exam Lumbar Fusion: Status post surgical day number 2 Patient is awake, alert, and oriented 3 Vital signs stable Good chest excursion with deep inspiration and expiration Abdomen soft nontender Dorsiflexion, plantarflexion, and extensor hallucis longus positive sustained bilaterally No signs or symptoms of DVT; no calf pain; pneumatic cuffs intact bilateral lower extremities Optifoam dressings are dry, and intact over the lumbar spine and right iliac crest with 2 small spots of dried blood over the left lumbar incision site; no erythema, purulence, or signs of infection Neurovascularly intact bilaterally lower extremities Assessment: Status post L4-5 and L5-S1 minimally invasive posterior lateral decompression and fusion with transforaminal lumbar interbody fusion L4-5 and L5-S1 spinal stenosis L4-5 and L5-S1 herniated nucleus pulposus L4-5 and L5-S1 degenerative disc disease Lumbar facet arthrosis Lower extremity radiculopathy Low back pain Plan: 1. Ambulate as tolerated; work with Physical Therapy to increase mobilization 2. Continue pain control with IV and oral medications; will plan to begin weaning the patient off of IV narcotic medication in anticipation for discharge home in the next 1-2 days 3. Dressings to remain intact with Optifoam; patient may shower with dressings intact 4. Medical management can continue to manage patient for patient's other medical diagnoses 5. We will continue to follow the patient closely; depending on the patient's progress, we may plan for discharge home as early as tomorrow, 03/11/2022 6. Patient can follow-up with Freddie Amaro PA-C or Dr. Ramiro Toth at [facility] in 2-3 weeks following discharge
[2022-03-10 11:15] LABS: Glucose,Whole Blood 156 mg/dL (75-99)
[2022-03-10] MEDS: HYDROcodone/APAP 10-325MG 1 EACH TAB PO PRN ×2 (13:15→19:47)
[2022-03-10 16:57] LABS: Glucose,Whole Blood 105 mg/dL (75-99)
[2022-03-10] MEDS: metFORMIN 500 MG TAB PO SCH (17:46)
--- NOTE | 2022-03-10 19:03 | P.PN ---
Subjective Progress Note Date: 03/10/22 57-year-old pleasant patient, follows with Dr. Resendiz. Patient's had lumbar pain for about 6 years. Getting worse in the last 2 years. He does sometimes go down the light from extremity. She does walk with a shuffled gait and a flexed posture. She was previously following with Dr. Jaiden García at the [place] [facility] did receive steroid injections. Positive manages at failed. Also started the loss of urine issues. Patient's front or spinal stenosis and herniated nucleus pulposus in the lower lumbar area. With regard adenopathy. Patient underwent decompressive surgery by Dr. Whitmore. I saw the patient postprocedure. Laying in bed. Pain at the operative site. Mcgrath catheter. Slight nausea. Uncomfortable. No chest pain or shortness of breath. Chronic stable medical conditions include COPD, diabetes, hypertension, hyperlipidemia. March 09: Sitting up in a chair. Mcgrath catheter is out. Made urine. No flatus. Pain at the operative site. Muscle spasm. No nausea vomiting. Did tolerate some diet. Objective - Vital Signs Vital signs: Vital Signs Temp 98.1 F 03/10/22 12:18 Pulse 101 H 03/10/22 12:18 Resp 14 03/10/22 12:18 BP 129/85 03/10/22 12:18 Pulse Ox 98 03/10/22 12:18 FiO2 Intake & Output 03/09/22 03/10/22 03/10/22 18:59 06:59 18:59 Intake Total 1000 Output Total 1800 Balance -1800 1000 Intake: Oral 1000 Output: Urine 1800 Other: Voiding Method Toilet Toilet # Voids 2 4 - Exam GENERAL: Sitting up in a chair, awake comfortable. EYES: Pupils equal. Conjunctiva normal. HEENT: External appearance of nose and ears normal, oral cavity grossly normal. NECK: JVD not raised; masses not palpable. HEART: First and second heart sounds are normal; no edema. LUNGS: Respiratory rate normal; decreased breath sounds. ABDOMEN: Soft, nontender, liver spleen not palpable, no masses palpable. Mcgrath catheter PSYCH: Alert and oriented x3; mood and affect a bit anxiousl. MUSCULOSKELETAL:No Clubbing/cyanosis;muscles-grossly intact. Dressing over the operative site NEUROLOGICAL: Cranial nerves grossly intact; no facial asymmetry, power and sensation grossly intact. - Labs CBC & Chem 7: 06/09/22 08:13 03/09/22 08:13 Labs: Abnormal Lab Results - Last 24 Hours (Table) 03/09/22 03/09/22 03/10/22 Range/Units 17:20 20:24 06:50 POC Glucose (mg/dL) 129 H 137 H 116 H (75-99) mg/dL 03/10/22 Range/Units 11:13 POC Glucose (mg/dL) 156 H (75-99) mg/dL Assessment and Plan Assessment: -Spinal stenosis L4 5 L5-S1, herniated nucleus pulposis L4 5 L5-S1, degenerative disc disease L4 5 L5-S1, low back pain, lower extremity radiculopathy, facet arthrosis Patient underwent laminectomy decompression by Dr. Whitmore on 03/08/2022 -Obesity BMI 33.4 Weight loss measures -Diabetes mellitus type 2, on oral hypoglycemic Resume metformin. Follow Accu-Cheks. -COPD in a previous smoker Short-acting beta agonist when necessary, Singulair 10 mg daily at bedtime -Gait dysfunction secondary to lumbar spine orthopedic causes Fall precaution -Mild acute postprocedure blood loss anemia, expected from surgery Add ferrous sulfate
[2022-03-10] MEDS: MONTELUKAST 10 MG TAB PO SCH (19:48)
[2022-03-10 20:17] LABS: Glucose,Whole Blood 104 mg/dL (75-99)
[2022-03-10 21:05] VITALS: RESP 18
[2022-03-11] MEDS: HYDROcodone/APAP 10-325MG 1 EACH TAB PO PRN ×3 (02:03→17:00)
[2022-03-11 07:21] LABS: Glucose,Whole Blood 110 mg/dL (75-99)
[2022-03-11] MEDS: INSULIN ASPART (NovoLOG) 100 UNIT/ML VIAL SQ SCH ×3 (07:27→17:44)
[2022-03-11] MEDS: FERROUS SULFATE 325 MG TAB PO SCH ×2 (08:19→17:00)
[2022-03-11] MEDS: SENNOSIDES-DOCUSATE SODIUM 1 EACH TAB PO SCH (08:19)
[2022-03-11] MEDS: HYDROcodone/APAP 7.5-325MG 1 EACH TAB PO PRN ×2 (11:54→22:11)
[2022-03-11 11:55] LABS: Glucose,Whole Blood 101 mg/dL (75-99)
--- NOTE | 2022-03-11 13:15 | P.PN ---
Progress Note - Text Progress Note Date: 03/11/22 Orthopedic Spine History of present illness: Patient is a pleasant 57-year-old female who is seen and examined at the bedside following posterior lateral decompression and fusion performed Sunday. Patient states they are doing okay post operatively and has had improvement as compared to yesterday. She continues to have some low back pain postoperatively. She states she feels soreness in her legs bilaterally. She has been able to ambulate to the restroom. She has been able to ambulate with the assistance of physical therapy and was able to ambulate to the hallway. She does continue to utilize a walker to aid in ambulation. She states she does have a walker at home. Her pain is being controlled with oral and IV pain medications but IV pain medication has been reduced. Her mobility and changing of positions is improving. She does not currently feel she is ready for discharge home. Currently does not complain of nausea, vomiting, fever, or chills. Patient is eating without difficulty. Patient states she is voiding independently but her stream is not as strong as it was previously. Physical Exam Lumbar Fusion: Status post surgical day number 3 Patient is awake, alert, and oriented 3 Vital signs stable Good chest excursion with deep inspiration and expiration Dorsiflexion, plantarflexion, and extensor hallucis longus positive sustained bilaterally No signs or symptoms of DVT; no calf pain; pneumatic cuffs intact bilateral lower extremities Dressings are removed from the surgical sites at the lumbar spine and the right iliac crest Surgical sites remained clean, dry, and intact Mild generalized swelling with some bruising around the surgical sites of the lumbar spine No active drainage from the surgical sites of the lumbar spine Neurovascularly intact bilaterally lower extremities Assessment: Status post L4-5 and L5-S1 minimally invasive posterior lateral decompression and fusion with transforaminal lumbar interbody fusion L4-5 and L5-S1 spinal stenosis L4-5 and L5-S1 herniated nucleus pulposus L4-5 and L5-S1 degenerative disc disease Lumbar facet arthrosis Lower extremity radiculopathy Low back pain Plan: 1. Ambulate as tolerated; work with Physical Therapy to increase mobilization 2. Continue pain control with oral medications; we will discontinue IV Dilaudid in anticipation for discharge home tomorrow, 03/12/2022 3. If lumbar surgical incision sites remained clean, dry, and intact, patient may shower without a dressing intact at this time. Patient should avoid standing water. 4. Patient has had difficulty sitting on a toilet she has difficulty sitting down onto the toilet. 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 5. Medicine will continue to manage the patient for the patient's other medical diagnoses 6. We will continue to follow the patient closely; patient continues to have difficulty with mobilization and ambulation postoperatively but has had some improvement as compared to yesterday. She has been working with physical therapy and is progressing. She has been utilizing a walker. She has difficulty sitting on a toilet. I do not feel the patient is ready for discharge home but given her improvement, do feel she could be ready for discharge home tomorrow as long she continues to improve. Patient will continue to remain in the hospital until her symptoms improve and her pain is better controlled. She will continue to be admitted to inpatient status during her admission. Depending on her progress we patient may plan to be discharged home tomorrow, 03/12/2022. Patient can follow-up with Freddie Amaro PA-C or Dr. Ramiro Toth at [facility] in 2-3 weeks following discharge
[2022-03-11] MEDS: metFORMIN 500 MG TAB PO SCH (17:00)
[2022-03-11 17:30] LABS: Glucose,Whole Blood 109 mg/dL (75-99)
--- NOTE | 2022-03-11 19:42 | P.PN ---
Subjective Progress Note Date: 03/11/22 Principal diagnosis: Spinal stenosis L4 5 L5-S1, herniated nucleus pulposis L4 5 L5-S1, degenerative disc disease L4 5 L5-S1, low back pain, lower extremity radiculopathy, facet arthrosis Patient underwent laminectomy decompression by Dr. Whitmore on 03/08/2022 57-year-old pleasant patient, follows with Dr. Resendiz. Patient's had lumbar pain for about 6 years. Getting worse in the last 2 years. He does sometimes go down the light from extremity. She does walk with a shuffled gait and a flexed posture. She was previously following with Dr. Jaiden García at the [facility] did receive steroid injections. Positive manages at failed. Also started the loss of urine issues. Patient's front or spinal stenosis and herniated nucleus pulposus in the lower lumbar area. With regard adenopathy. Patient underwent decompressive surgery by Dr. Whitmore. I saw the patient postprocedure. Laying in bed. Pain at the operative site. Mcgrath catheter. Slight nausea. Uncomfortable. No chest pain or shortness of breath. Chronic stable medical conditions include COPD, diabetes, hypertension, hyperlipidemia. March 09: Sitting up in a chair. Mcgrath catheter is out. Made urine. No flatus. Pain at the operative site. Muscle spasm. No nausea vomiting. Did tolerate some diet. 03/11/2022 Patient is seen and evaluated sitting up in bedside chair; report some improvement in pain Vital signs are reviewed and stable --patient continues to have difficulty with mobilization and ambulation postoperatively but has had some improvement as compared to yesterday. She has been working with physical therapy and is progressing. She has been utilizing a walker. She has difficulty sitting on a toilet. I do not feel the patient is ready for discharge home but given her improvement, do feel she could be ready for discharge home tomorrow as long she continues to improve. Patient will continue to remain in the hospital until her symptoms improve and her pain is better controlled. She will continue to be admitted to inpatient status during her admission. Depending on her progress we patient may plan to be discharged h ome tomorrow, 03/12/2022 Objective - Vital Signs Vital signs: Vital Signs Temp 99.1 F 03/11/22 11:09 Pulse 86 03/11/22 11:09 Resp 18 03/11/22 11:09 BP 119/75 03/11/22 11:09 Pulse Ox 94 L 03/11/22 11:09 FiO2 Intake & Output 03/10/22 03/11/22 03/11/22 18:59 06:59 18:59 Intake Total 240 Balance 240 Intake: Oral 240 Other: Voiding Method Toilet Toilet # Voids 4 4 - Exam GENERAL: Sitting up in a chair, awake comfortable. EYES: Pupils equal. Conjunctiva normal. HEENT: External appearance of nose and ears normal, oral cavity grossly normal. NECK: JVD not raised; masses not palpable. HEART: First and second heart sounds are normal; no edema. LUNGS: Respiratory rate normal; decreased breath sounds. ABDOMEN: Soft, nontender, liver spleen not palpable, no masses palpable. Mcgrath catheter PSYCH: Alert and oriented x3; mood and affect a bit anxiousl. MUSCULOSKELETAL:No Clubbing/cyanosis;muscles-grossly intact. Dressing over the operative site NEUROLOGICAL: Cranial nerves grossly intact; no facial asymmetry, power and sensation grossly intact. - Labs CBC & Chem 7: 03/09/22 08:13 03/09/22 08:13 Labs: Abnormal Lab Results - Last 24 Hours (Table) 03/10/22 03/10/22 03/11/22 Range/Units 16:56 20:12 07:12 POC Glucose (mg/dL) 105 H 104 H 110 H (75-99) mg/dL 03/11/22 Range/Units 11:11 POC Glucose (mg/dL) 101 H (75-99) mg/dL Assessment and Plan Assessment: -Spinal stenosis L4 5 L5-S1, herniated nucleus pulposis L4 5 L5-S1, degenerative disc disease L4 5 L5-S1, low back pain, lower extremity radiculopathy, facet arthrosis Patient underwent laminectomy decompression by Dr. Whitmore on 03/08/2022 -Obesity BMI 33.4 Weight loss measures -Diabetes mellitus type 2, on oral hypoglycemic Resume metformin. Follow Accu-Cheks. -COPD in a previous smoker Short-acting beta agonist when necessary, Singulair 10 mg daily at bedtime -Gait dysfunction secondary to lumbar spine orthopedic causes Fall precaution -Mild acute postprocedure blood loss anemia, expected from surgery Add ferrous sulfate
[2022-03-11] MEDS: MONTELUKAST 10 MG TAB PO SCH (20:11)
[2022-03-11 21:17] LABS: Glucose,Whole Blood 145 mg/dL (75-99)
[2022-03-12] MEDS: HYDROcodone/APAP 10-325MG 1 EACH TAB PO PRN ×3 (03:06→12:56)
[2022-03-12 04:35] VITALS: TEMP 98.1
[2022-03-12 06:45] LABS: Basophils # (A) 0.1 k/uL (0-0.2); Basophils % (A) 1 %; Eosinophils # (A) 0.3 k/uL (0-0.7); Eosinophils % (A) 4 %; HCT 35.3 % (34.0-46.0); HGB 10.9 gm/dL (11.4-16.0); Lymphocytes # (A) 1.8 k/uL (1.0-4.8); Lymphocytes % (A) 27 %; MCH 29.6 pg (25.0-35.0); MCHC 30.8 g/dL (31.0-37.0); MCV 96.1 fL (80.0-100.0); Mean Platelet Volume 7.3; Monocytes # (A) 0.6 k/uL (0-1.0); Monocytes % (A) 8 %; Neutrophils # (A) 3.9 k/uL (1.3-7.7); Neutrophils % (A) 58 %; Platelet Count 296 k/uL (150-450); RBC 3.67 m/uL (3.80-5.40); RDW 12.1 % (11.5-15.5); WBC 6.7 k/uL (3.8-10.6)
[2022-03-12 06:54] LABS: African American GFR (CKD) >90 (>60 ml/min/1.73 sqM); Anion Gap 11 mmol/L; Blood Urea Nitrogen 11 mg/dL (7-17); Calcium 8.9 mg/dL (8.4-10.2); Carbon Dioxide 25 mmol/L (22-30); Chloride 99 mmol/L (98-107); Glucose 95 mg/dL (74-99); Non-African American GFR(CKD) >90 (>60 ml/min/1.73 sqM); Sodium 135 mmol/L (137-145)
[2022-03-12 07:19] LABS: Glucose,Whole Blood 98 mg/dL (75-99)
[2022-03-12] MEDS: INSULIN ASPART (NovoLOG) 100 UNIT/ML VIAL SQ SCH ×2 (08:20→12:35)
[2022-03-12] MEDS: FERROUS SULFATE 325 MG TAB PO SCH (08:25)
[2022-03-12] MEDS: SENNOSIDES-DOCUSATE SODIUM 1 EACH TAB PO SCH (08:25)
[2022-03-12] MEDS: CYCLOBENZAPRINE 10 MG TAB PO PRN ×2 (08:34→12:56)
[2022-03-12 09:24] VITALS: BP 110/68
[2022-03-12 10:48] VITALS: PULSE 88
[2022-03-12 11:47] LABS: Glucose,Whole Blood 117 mg/dL (75-99)
--- NOTE | 2022-03-12 11:49 | P.DS ---
Providers Date of admission: 03/10/22 11:52 Expected date of discharge: 03/12/22 Attending physician: Lee Toth Consults: 03/08/22 15:31 Consult Physician Routine Consulting Provider: Angel Martinez Consult Reason/Comments: Medical management Do you want consulting provider notified?: Yes Primary care physician: Donny Resendiz - Discharge Diagnosis(es) (1) Lumbar facet arthropathy Current Visit: Yes Status: Acute (2) Lumbar degenerative disc disease Current Visit: Yes Status: Acute (3) Lumbar spondylosis Current Visit: Yes Status: Acute (4) Lumbar disc herniation Current Visit: Yes Status: Acute (5) Lumbar back pain with radiculopathy affecting lower extremity Current Visit: Yes Status: Acute (6) Lung disease Current Visit: Yes Status: Acute (7) History of shortness of breath Current Visit: Yes Status: Acute (8) Obesity (BMI 30.0-34.9) Current Visit: Yes Status: Acute (9) Lumbar stenosis Current Visit: Yes Status: Acute (10) Status post lumbar spinal fusion Current Visit: Yes Status: Acute (11) Hyperlipidemia Current Visit: Yes Status: Acute Hospital Course: This is a pleasant 57-year-old female who presented with L4-5 and L5-S1 spinal stenosis, herniated nucleus pulposus, degenerative disc disease, and lumbar facet arthrosis with low back pain and lower extremity radiculopathy who failed outpatient conservative therapy. She was admitted for an L4-5 and L5-S1 minimally invasive posterior lateral decompression and fusion with transforaminal lumbar interbody fusion. Initially she was progressing slowly postoperatively. She has continued to improve over the weekend. She does continue to use a walker to aid in ambulation. She does have a walker at home. Her lumbar pain is currently adequate controlled. She is not experiencing any lower extremity weakness or radiculopathy bilaterally. The achy sensation in her lower extremities has significantly improved. She does feel she is ready for discharge today. Condition on day of discharge stable. Patient will be discharged home. Patient was cleared preoperatively for surgery by Dr. Resendiz. Patient currently denies any nausea, vomiting, fever, or chills. Patient is eating and voiding freely without difficulty. Patient may shower without dressings intact at this time. Patient should refrain from driving until at least after their first follow-up appointment in the office. Patient should avoid excessive bending, lifting, and twisting; no lifting greater than 10 pounds. Patient may continue to utilize a walker to aid in ambulation as needed. MAPS has been reviewed today, 03/12/2022, with an Overall Overdose Risk Score of 210. An "Opiod Start Talking" Form has been signed and placed in the patient's chart. A prescription has been written for [place] 7.5 mg/325 mg 1 every 6 hours as needed for pain, dispense #28. She is also given a prescription for cyclobenzaprine 10 mg 1 tab 3 times a day as near for muscle spasm, dispensed #60. These medications are sent to her regular pharmacy per the patient's request. Patient should avoid anti-inflammatory medications over the next 6 weeks postoperatively. Patient's other medical diagnoses include hyperlipidemia, obesity, lung disease, and history of shortness of breath. Physical Exam on day of discharge: Status post surgical day number 4 Patient is awake, alert, and oriented 3 Vital signs stable Good chest excursion with deep inspiration and expiration Dorsiflexion, plantarflexion, and extensor hallucis longus positive sustained bilaterally No signs or symptoms of DVT; no calf pain; pneumatic cuffs not currently intact bilateral lower extremities Dressings were previously removed from the surgical sites at the lumbar spine and the right iliac crest Surgical sites remained clean, dry, and intact Mild generalized swelling with some bruising around the surgical sites of the lumbar spine No active drainage from the surgical sites of the lumbar spine Neurovascularly intact bilaterally lower extremities Procedures: L4-5 and L5-S1 minimally invasive posterior lateral decompression and fusion with transforaminal lumbar interbody fusion Patient Condition at Discharge: Stable Plan - Discharge Summary Discharge Rx Participant: Yes New Discharge Prescriptions: New Cyclobenzaprine [Flexeril] 10 mg PO TID PRN #60 tab PRN Reason: Muscle Spasm HYDROcodone/APAP 7.5-325MG [[place] 7.5-325] 1 each PO Q6HR PRN #28 tab PRN Reason: Pain No Action HYDROcodone/APAP 7.5-325MG [[place] 7.5-325] 1 tab PO TID PRN PRN Reason: Pain Albuterol Nebulized [Ventolin Nebulized] 2.5 mg INHALATION Q4H PRN #25 nebu PRN Reason: Shortness Of Breath metFORMIN HCL [Glucophage] 500 mg PO W/SUPPER Albuterol Inhaler [Ventolin Hfa Inhaler] 1 puff INHALATION DIRECTED PRN PRN Reason: sob Montelukast Sodium [Singulair] 10 mg PO HS Discharge Medication List Albuterol Nebulized [Ventolin Nebulized] 2.5 mg INHALATION Q4H PRN #25 nebu 11/25/19 [Rx] HYDROcodone/APAP 7.5-325MG [[place] 7.5-325] 1 tab PO TID PRN 11/25/19 [History] metFORMIN HCL [Glucophage] 500 mg PO W/SUPPER 01/06/21 [History] Albuterol Inhaler [Ventolin Hfa Inhaler] 1 puff INHALATION DIRECTED PRN 03/07/22 [History] Montelukast Sodium [Singulair] 10 mg PO HS 03/07/22 [History] Cyclobenzaprine [Flexeril] 10 mg PO TID PRN #60 tab 03/12/22 [Rx] HYDROcodone/APAP 7.5-325MG [[place] 7.5-325] 1 each PO Q6HR PRN #28 tab 03/12/22 [Rx] Follow up Appointment(s)/Referral(s): [facility] [NON-STAFF] - 1 Week Freddie Amaro PAC [PHYSICIAN BUSINESS [employer]ER] - 2 Weeks (Patient may follow-up with Freddie Amaro PA-C or Dr. Ramiro Toth at [facility] in 2-3 weeks following discharge. ) Activity/Diet/Wound Care/Special Instructions: 1. Patient may shower without a dressing intact over her surgical sites 2. Patient may continue to utilize a walker to aid in ambulation as needed 3. Patient should refrain from driving until at least after their first follow- up appointment in the office 4. Patient should avoid excessive bending, twisting, lifting; avoid overhead lifting; no lifting greater than 10 pounds 5. Take medications as prescribed 6. Patient should avoid anti-inflammatory medications over the next 6 weeks postoperatively 7. Do not soak in tub Discharge Disposition: HOME SELF-CARE
== END 2022-03-12 13:34 | disposition home or self-care (01) | DRG 454 ==
LOC: OR 09:54 → 5NMEDONC 15:23 → OR 03-09 01:06 → 5NMEDONC 03-09 01:06 → OBSVTOIN 03-10 11:52
PROVIDERS: ADMIT Orthopaedic Surgery Orthopaedic Surgery of the Spine; ATTEND Orthopaedic Surgery Orthopaedic Surgery of the Spine
PROC: 01NR0ZZ Release Sacral Nerve, Open Approach (ICD-10-PCS; principal; 2022-03-08 11:15)
PROC: 4A11X4G Monitoring of Peripheral Nervous Electrical Activity, Intraoperative, External Approach (ICD-10-PCS; principal; 2022-03-08 11:15)
PROC: 01NB0ZZ Release Lumbar Nerve, Open Approach (ICD-10-PCS; principal; 2022-03-08 11:15)
PROC: 0ST20ZZ Resection of Lumbar Vertebral Disc, Open Approach (ICD-10-PCS; principal; 2022-03-08 11:15)
PROC: 0SG3071 Fusion of Lumbosacral Joint with Autologous Tissue Substitute, Posterior Approach, Posterior Column, Open Approach (ICD-10-PCS; principal; 2022-03-08 11:15)
PROC: 0QB23ZZ Excision of Right Pelvic Bone, Percutaneous Approach (ICD-10-PCS; principal; 2022-03-08 11:15)
PROC: 0SG00AJ Fusion of Lumbar Vertebral Joint with Interbody Fusion Device, Posterior Approach, Anterior Column, Open Approach (ICD-10-PCS; principal; 2022-03-08 11:15)
PROC: 0ST40ZZ Resection of Lumbosacral Disc, Open Approach (ICD-10-PCS; principal; 2022-03-08 11:15)
PROC: 0SG30AJ Fusion of Lumbosacral Joint with Interbody Fusion Device, Posterior Approach, Anterior Column, Open Approach (ICD-10-PCS; principal; 2022-03-08 11:15)
DX: M48.061 Spinal stenosis, lumbar region without neurogenic claudication (principal); D62 Acute posthemorrhagic anemia; E11.9 Type 2 diabetes mellitus without complications; J44.9 Chronic obstructive pulmonary disease, unspecified; M47.26 Other spondylosis with radiculopathy, lumbar region; M48.07 Spinal stenosis, lumbosacral region; M51.16 Intervertebral disc disorders with radiculopathy, lumbar region; M51.17 Intervertebral disc disorders with radiculopathy, lumbosacral region; M47.27 Other spondylosis with radiculopathy, lumbosacral region; M62.838 Other muscle spasm; I10 Essential (primary) hypertension; E78.5 Hyperlipidemia, unspecified; K59.00 Constipation, unspecified; F32.9 Major depressive disorder, single episode, unspecified; E66.9 Obesity, unspecified; Z68.33 Body mass index [BMI] 33.0-33.9, adult; R26.9 Unspecified abnormalities of gait and mobility; R32 Unspecified urinary incontinence; L24.5 Irritant contact dermatitis due to other chemical products; Z79.84 Long term (current) use of oral hypoglycemic drugs; Z79.899 Other long term (current) drug therapy; Z97.3 Presence of spectacles and contact lenses; Z90.710 Acquired absence of both cervix and uterus; Z87.42 Personal history of other diseases of the female genital tract; Z98.51 Tubal ligation status; Z87.891 Personal history of nicotine dependence; Z87.01 Personal history of pneumonia (recurrent); Z87.39 Personal history of other diseases of the musculoskeletal system and connective tissue; Z98.890 Other specified postprocedural states; Z91.011 Allergy to milk products; Z88.5 Allergy status to narcotic agent; Z88.7 Allergy status to serum and vaccine; Z91.018 Allergy to other foods; Z91.048 Other nonmedicinal substance allergy status; Z82.49 Family history of ischemic heart disease and other diseases of the circulatory system
CPT/HCPCS: 72100; 80048; 85025; 86850; 86900; 86901

== ENCOUNTER 2022-07-01 15:53 | Emergency (ER) | payer OTHER, BC ==
[2022-07-01] MEDS ORDERED: CEPHALEXIN 500 MG CAP PO STA (20:15)
[2022-07-01] MEDS ORDERED: IBUPROFEN 600 MG TAB PO STA (20:15)
--- NOTE | 2022-07-01 20:18 | ED ---
General Adult HPI - General Chief complaint: Skin/Abscess/Foreign Body Stated complaint: [facility]-Spider bite Time Seen by Provider: 07/01/22 18:04 Source: patient, RN notes reviewed Mode of arrival: ambulatory Limitations: no limitations - History of Present Illness Initial comments: 57-year-old female presents to the emergency Department with complaints of a couple spider bites sustained over the past several days in her work environment. Patient states she was bit by a spider yesterday on the right upper extremity and is experiencing increased redness and pain around the site. States pain is worse with arm in dependent position. Did not take anything to treat her symptoms prior to arrival. Denies fever, chills, headache, dizziness, chest pain, shortness of breath, abdominal pain, nausea, vomiting, diarrhea, or dysuria. - Related Data Home Medications Medication Instructions Recorded Confirmed metFORMIN HCL [Glucophage] 500 mg PO W/SUPPER 01/06/21 03/07/22 Albuterol Inhaler [Ventolin Hfa 1 puff INHALATION DIRECTED PRN 03/07/22 03/07/22 Inhaler] Montelukast Sodium [Singulair] 10 mg PO HS 03/07/22 03/07/22 Previous Rx's Medication Instructions Recorded Albuterol Nebulized [Ventolin 2.5 mg INHALATION Q4H PRN #25 nebu 11/25/19 Nebulized] Cyclobenzaprine [Flexeril] 10 mg PO TID PRN #60 tab 03/12/22 HYDROcodone/APAP 7.5-325MG [[place] 1 each PO Q6HR PRN #28 tab 03/12/22 7.5-325] Cephalexin [Keflex] 500 mg PO Q6HR 5 Days #20 cap 07/01/22 Sulfamethox-Tmp 800-160Mg [Bactrim 1 each PO Q12HR 5 Days #10 tab 07/01/22 Ds] Allergies Allergy/AdvReac Type Severity Reaction Status Date / Time influenza virus vaccine ts Allergy Unknown Verified 07/01/22 16:04 [id number] (36 mos,up) [From Fluarix] Milk Containing Products Allergy Nausea & Verified 07/01/22 16:04 [Dairy] Vomiting & Diarrhea mold Allergy Dyspnea Verified 07/01/22 16:04 oxycodone Allergy Nausea & Verified 07/01/22 16:04 Vomiting tomato Allergy Nausea & Verified 07/01/22 16:04 Vomiting & Diarrhea Review of Systems ROS Statement: Those systems with pertinent positive or pertinent negative responses have been documented in the HPI. ROS Other: All systems not noted in ROS Statement are negative. Past Medical History Past Medical History: Asthma, COPD, Diabetes Mellitus, Hyperlipidemia, Pneumonia Additional Past Medical History / Comment(s): Bilateral carpal tunnel. degenerative disks, History of Any Multi-Drug Resistant Organisms: None Reported Past Surgical History: Hysterectomy, Tubal Ligation Additional Past Surgical History / Comment(s): Cysts on ovaries removed. Past Anesthesia/Blood Transfusion Reactions: No Reported Reaction Past Psychological History: No Psychological Hx Reported Smoking Status: Former smoker Past Alcohol Use History: Rare Past Drug Use History: Marijuana - Past Family History Mother Family Medical History: No Reported History General Exam Limitations: no limitations (Well-developed, well-nourished female in no acute distress. Initial temperature 98.3, pulse 100, respirations 20, blood pressure 143/83, pulse ox 99% on room air.) General appearance: alert, in no apparent distress Respiratory exam: Present: normal lung sounds bilaterally. Absent: respiratory distress, wheezes, rales, rhonchi, stridor Cardiovascular Exam: Present: regular rate, normal rhythm, normal heart sounds. Absent: systolic murmur, diastolic murmur, rubs, gallop, clicks Skin exam: Present: warm, dry, intact, erythema (Erythematous area at the right upper extremity with a marker line drawn to surround initial area of concern. Redness is streaking up the forearm and the upper arm. States it is tender to touch. No fluctuant area.) Course Vital Signs 07/01/22 07/01/22 16:02 21:01 Temperature 98.3 F 98.7 F Pulse Rate 100 82 Respiratory 20 14 Rate Blood Pressure 143/83 135/78 O2 Sat by Pulse 99 98 Oximetry Medical Decision Making - Medical Decision Making This is a pleasant 57-year-old female who presents to the emergency department for evaluation of erythematous right upper extremity secondary to spider bite. Upon exam, patient is well-appearing and in no acute distress. Erythematous area is warm to touch. Patient will be started on Bactrim and Keflex for cellulitis surrounding spider bite. Given Motrin while present in the emergency department. Will be discharged home to follow up with [facility] for a recheck in 48 hours. Return parameters were discussed in detail. Patient verbalizes understanding and agrees with this plan. Attending:Dc. Disposition Clinical Impression: Cellulitis of right forearm Disposition: HOME SELF-CARE Condition: Stable Instructions (If sedation given, give patient instructions): Cellulitis (ED) Additional Instructions: Take antibiotic as directed. May take Tylenol or Motrin if needed for pain. Follow-up with your PCP for a recheck on Sunday or Sunday. Return to the emergency department with any new, worsening, or concerning symptoms. Prescriptions: Sulfamethox-Tmp 800-160Mg [Bactrim Ds] 1 each PO Q12HR 5 Days #10 tab Cephalexin [Keflex] 500 mg PO Q6HR 5 Days #20 cap Is patient prescribed a controlled substance at d/c from ED?: No Referrals: Donny Resendiz MD [Primary Care Provider] - 1-2 days Time of Disposition: 20:17
[2022-07-01] MEDS ORDERED: SULFAMETHOX-TMP 800-160MG 1 EACH TAB PO STA (20:36)
[2022-07-01 21:02] VITALS: BP 135/78; PULSE 82; RESP 14; TEMP 98.7
== END 2022-07-01 21:01 | disposition home or self-care (01) ==
LOC: EC 15:53
DX: L03.113 Cellulitis of right upper limb (principal); J44.9 Chronic obstructive pulmonary disease, unspecified; E11.9 Type 2 diabetes mellitus without complications; E78.5 Hyperlipidemia, unspecified; Z88.7 Allergy status to serum and vaccine; Z87.891 Personal history of nicotine dependence; Z91.011 Allergy to milk products; Z91.018 Allergy to other foods; Z88.5 Allergy status to narcotic agent; Z88.2 Allergy status to sulfonamides; Z79.51 Long term (current) use of inhaled steroids; Z79.84 Long term (current) use of oral hypoglycemic drugs
CPT/HCPCS: 99282

== ENCOUNTER → 2023-12-28 | Outpatient (CLI) | payer BC ==
--- NOTE | 2023-12-31 08:02 | MM ---
Reason for Exam: Screening (asymptomatic). Last mammogram was performed 1 year(s) and 1 month(s) ago. Patient History: Menarche at age 13. Patient has no children. Hysterectomy at age 40. Postmenopausal. Hormonal Contraceptives for 5 years from age 17 until age 22. Risk Values: [place] 5 year model risk: 1.4%. NCI Lifetime model risk: 8.7%. Prior Study Comparison: 12/16/2015 Bilateral Diagnostic Mammogram, [facility]. 10/18/2021 Bilateral Screening Mammogram, [facility]. 11/23/2022 Bilateral MG 3D screening mammo w/cad, [facility]. Tissue Density: The breasts are heterogeneously dense, which may obscure small masses. Findings: Analyzed By CAD. The pattern is symmetrical. No significant interval change is evident. Benign punctate calcifications within the right breast No suspicious groups of microcalcifications, spiculated or lobular masses, architectural distortion or other secondary signs of malignancy are mammographically apparent. Overall Assessment: Benign, BI-RAD 2 Management: Screening Mammogram of both breasts in 1 year. A negative mammogram report should not preclude additional follow up of suspicious palpable abnormalities. Patient should continue monthly self breast exam. A clinical breast exam by your physician is recommended on an annual basis and results should be correlated with mammographic findings. Electronically signed and approved by: Ricardo Fink D.O. Radiologis
== END | disposition home or self-care (01) ==
LOC: RADMAMWWP 09:57
PROVIDERS: ATTEND Pediatrics
DX: Z12.31 Encounter for screening mammogram for malignant neoplasm of breast (principal); Z78.0 Asymptomatic menopausal state
CPT/HCPCS: 77063; 77067